=== PATIENT | female | born 1990 | race African-American/Black ===

== ENCOUNTER 2019-05-11 05:26 | Inpatient (IN) | payer MEDICAID ==
[2019-05-11] MEDS ORDERED: Oxytocin/0.9 % Sodium Chloride 30 UNIT/500 ML BAG IV SCH (05:30)
[2019-05-11] MEDS ORDERED: Sodium Chloride 0.9% 2.5 ML Syringe FLUSH PRN (05:30)
[2019-05-11] MEDS ORDERED: Citric Acid/Sodium Citrate Solution 30 ML Cup PO ONE (05:30)
[2019-05-11] MEDS ORDERED: Sodium Chloride 0.9% 10 ML Syringe FLUSH PRN (05:30)
[2019-05-11] MEDS ORDERED: ceFAZolin 2 GM in Premix Bag 1 BAG IV ONE (05:30)
[2019-05-11] MEDS ORDERED: Sodium Chloride 0.9% 10 ML SDV IV PRN (05:30)
[2019-05-11] MEDS: Lactated Ringers 1,000 ML IV SCH ×4 (05:54→23:52)
[2019-05-11] MEDS ORDERED: fentaNYL 100 MCG/2 ML SDV IVPUSH PRN (07:15)
[2019-05-11] MEDS ORDERED: Naloxone 0.4 MG/ML Syringe IVPUSH PRN (07:15)
[2019-05-11] MEDS ORDERED: Nalbuphine 10 MG/1 ML Vial IVPUSH PRN (07:15)
[2019-05-11] MEDS ORDERED: Ondansetron 4 MG/2 ML SDV IVPUSH PRN ×2 (07:15→09:23)
[2019-05-11] MEDS ORDERED: Acetaminophen/oxyCODONE 325-5 MG Tab PO PRN ×2 (07:15→09:23)
[2019-05-11] MEDS ORDERED: diphenhydrAMINE 50 MG/ML SDV IVPUSH PRN ×2 (07:15→09:23)
--- NOTE | 2019-05-11 07:15 | PCM.PREANE ---
Preanesthetic Assessment - Anesthesia/Transfusion/Family Hx Anesthesia History: Prior Anesthesia Without Reaction Family History of Anesthesia Reaction: No Transfusion History: Prior Transfusion Without Reaction Intubation History: Unknown - Review of Systems General: No Symptoms Pulmonary: No Symptoms Cardiovascular: No Symptoms Gastrointestinal: No Symptoms Neurological: No Symptoms Other: Reports: None - Physical Assessment Height: 5 ft 7 in Weight: 140.614 kg ASA Class: 2 Mental Status: Alert & Oriented x3 Airway Class: Mallampati = 2 Dentition: Reports: Normal Dentition Thyro-Mental Finger Breadths: 3 Mouth Opening Finger Breadths: 3 ROM/Head Extension: Full Lungs: Clear to Auscultation, Normal Respiratory Effort Cardiovascular: Regular Rate, Regular Rhythm - Lab Values: Laboratory Last Values WBC 8.28 K/uL (4.0-11.0) 05/11/19 05:53 RBC 4.02 M/uL (4.30-5.90) L 05/11/19 05:53 Hgb 11.0 g/dL (12.0-16.0) L 05/11/19 05:53 Hct 33.7 % (36.0-46.0) L 05/11/19 05:53 MCV 83.8 fL (80.0-98.0) 05/11/19 05:53 MCH 27.4 pg (27.0-32.0) 05/11/19 05:53 MCHC 32.6 g/dL (31.0-37.0) 05/11/19 05:53 RDW Std Deviation 40.5 fl (28.0-62.0) 05/11/19 05:53 RDW Coeff of Nayeli 14 % (11.0-15.0) 05/11/19 05:53 Plt Count 185 K/uL (150-400) 05/11/19 05:53 MPV 11.50 fL (7.40-12.00) 05/11/19 05:53 Nucleated RBC % 0.0 /100WBC 05/11/19 05:53 Nucleated RBCs # 0 K/uL 05/11/19 05:53 - Allergies Allergies/Adverse Reactions: Allergies Allergy/AdvReac Type Severity Reaction Status Date / Time No Known Allergies Allergy Verified 05/05/19 07:16 - Blood Blood Available: No - Anesthesia Plan Pre-Op Medication Ordered: None - Acknowledgements Anesthesia Type Planned: Spinal (general anesthesia back-up plan) Pt an Appropriate Candidate for the Planned Anesthesia: Yes Alternatives and Risks of Anesthesia Discussed w Pt/Guardian: Yes Pt/Guardian Understands and Agrees with Anesthesia Plan: Yes PreAnesthesia Questionnaire HEENT History: Reports: None Cardiovascular History: Reports: None Respiratory History: Reports: None Gastrointestinal History: Reports: Cholelithiasis Genitourinary History: Reports: None [employer] History: Reports: Musculoskeletal History: Reports: Fracture Other Musculoskeletal History: hx fx wrist Neurological History: Reports: None Psychiatric History: Reports: None Endocrine/Metabolic History: Reports: Obesity/BMI 30+ Hematologic History: Reports: None Immunologic History: Reports: None Oncologic (Cancer) History: Reports: None Dermatologic History: Reports: None - Infectious Disease History Infectious Disease History: Reports: None - Past Surgical History Head Surgeries/Procedures: Reports: None HEENT Surgical History: Reports: None Cardiovascular Surgical History: Reports: None Respiratory Surgical History: Reports: None GI Surgical History: Reports: Appendectomy Female Surgical History: Reports: Section (x2) Endocrine Surgical History: Reports: None Neurological Surgical History: Reports: None Musculoskeletal Surgical History: Reports: None Oncologic Surgical History: Reports: None Dermatological Surgical History: Reports: None - SUBSTANCE USE Smoking Status *Q: Current Every Day Smoker (1-2 cigaretes/day) Tobacco Use Within Last Twelve Months: Cigarettes Second Hand Smoke Exposure: No Recreational Drug Use History: No - HOME MEDS Home Medications: Home Meds . [No Known Home Meds] 03/14/19 [History] - CURRENT (IN HOUSE) MEDS Current Meds: Current Medications Lactated Ringer's (Ringers, Lactated) 1,000 mls @ 500 mls/hr IV BOLUS ОЛЬГА Last Admin: 05/11/19 06:52 Dose: 999 mls/hr Oxytocin/Sodium Chloride (Oxytocin 30 Unit/500 Ml-Ns) 30 unit in 500 mls @ 250 mls/hr IV TITRATE ОЛЬГА Sodium Chloride (Saline Flush) 10 ml FLUSH ASDIRECTED PRN PRN Reason: Keep Vein Open Sodium Chloride (Saline Flush) 2.5 ml FLUSH ASDIRECTED PRN PRN Reason: Keep Vein Open Sodium Chloride (Normal Saline) 10 ml IV ASDIRECTED PRN PRN Reason: IV Use Discontinued Medications Citric Acid/Sodium Citrate (Bicitra Solution) 30 ml PO ONETIME ONE Stop: 05/11/19 05:31 Cefazolin Sodium/Dextrose 2 gm (/ Premix) 50 mls @ 100 mls/hr IV ONETIME ONE Stop: 05/11/19 05:59
[2019-05-11] MEDS ORDERED: ceFAZolin 1 GM Vial ONE (07:23)
[2019-05-11] MEDS ORDERED: ePHEDrine 50 MG/ML SDV ONE (07:25)
[2019-05-11] MEDS ORDERED: Morphine PF 10 MG/10 ML SDV ONE (07:30)
[2019-05-11] MEDS ORDERED: Propofol 200 MG/20 ML SDV ONE (07:41)
[2019-05-11] MEDS ORDERED: Oxytocin 10 Units/1 ML SDV IM PRN (09:23)
[2019-05-11] MEDS ORDERED: Tranexamic Acid 1,000 MG in Sodium Chloride 0.9% 100 ML IV PRN (09:23)
[2019-05-11] MEDS ORDERED: Methylergonovine 0.2 MG/1 ML Amp IM PRN (09:23)
[2019-05-11] MEDS ORDERED: Bisacodyl 10 MG Supp RECTAL PRN (09:23)
[2019-05-11] MEDS ORDERED: Lanolin 100% Cream 7 GM Tube TOP PRN (09:23)
[2019-05-11] MEDS ORDERED: Misoprostol 200 MCG Tab RECTAL PRN (09:23)
--- NOTE | 2019-05-11 09:27 | PCM.LDHP ---
L&D History of Present Illness - General Date of Service: 05/11/19 Admit Problem/Dx: Patient Status Order with Admit Dx/Problem 05/11/19 05:30 Patient Status [ADT] Routine 05/11/19 09:23 Patient Status [ADT] Routine Admission Diagnosis/Problem Admission Diagnosis/Problem - planned Source of Information: Patient History Limitations: Reports: No Limitations - History of Present Illness Improves with: Reports: None Worsens with: Reports: None Associated Symptoms: Reports: N - Related Data Allergies/Adverse Reactions: Allergies Allergy/AdvReac Type Severity Reaction Status Date / Time No Known Allergies Allergy Verified 05/05/19 07:16 Home Medications: Home Meds . 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: Musculoskeletal History: Reports: Fracture Other Musculoskeletal History: hx fx wrist Neurological History: Reports: None Psychiatric History: Reports: None Endocrine/Metabolic History: Reports: Obesity/BMI 30+ Hematologic History: Reports: None Immunologic History: Reports: None Oncologic (Cancer) History: Reports: None Dermatologic History: Reports: None - Infectious Disease History Infectious Disease History: Reports: None - Past Surgical History Head Surgeries/Procedures: Reports: None HEENT Surgical History: Reports: None Cardiovascular Surgical History: Reports: None Respiratory Surgical History: Reports: None GI Surgical History: Reports: Appendectomy Female Surgical History: Reports: Section (x2) Endocrine Surgical History: Reports: None Neurological Surgical History: Reports: None Musculoskeletal Surgical History: Reports: None Oncologic Surgical History: Reports: None Dermatological Surgical History: Reports: None Social & Family History - Family History Family Medical History: Noncontributory - Tobacco Use Smoking Status *Q: Current Every Day Smoker (1-2 cigaretes/day) Years of Tobacco use: 7 Packs/Tins Daily: 0.7 Used Tobacco, but Quit: Yes Month/Year Tobacco Last Used: quit smoking approx 2 months ago Second Hand Smoke Exposure: No - Caffeine Use Caffeine Use: Reports: None - Recreational Drug Use Recreational Drug Use: No Drug Use in Last 12 Months: No H&P Review of Systems - Review of Systems: Review Of Systems: See Below General: Reports: No Symptoms HEENT: Reports: No Symptoms Pulmonary: Reports: No Symptoms Cardiovascular: Reports: No Symptoms Gastrointestinal: Reports: No Symptoms Genitourinary: Reports: No Symptoms Musculoskeletal: Reports: No Symptoms Skin: Reports: No Symptoms Psychiatric: Reports: No Symptoms Neurological: Reports: No Symptoms Hematologic/Lymphatic: Reports: No Symptoms Immunologic: Reports: No Symptoms L&D Exam - Exam Exam: See Below - Vital Signs Weight: 140.614 kg - OB Specific Fundal Height In cm: 40 Movement: Active Heart Tones: Present Presentation: Vertex - Exam General: Alert, Oriented HEENT: PERRLA, Conjunctiva Clear, EACs Clear, EOMI, Hearing Intact, Mucosa Moist & [place], Nares Patent, Normal Nasal Septum, Posterior Pharynx Clear, TMs Clear Neck: Supple, Trachea Midline Lungs: Clear to Auscultation, Normal Respiratory Effort Cardiovascular: Regular Rate, Regular Rhythm GI/Abdominal Exam: Normal Bowel Sounds, Soft, Non-Tender, No Organomegaly, No Distention, No Abnormal Bruit, No Mass, Pelvis Stable Rectal Exam: Normal Exam, Normal Rectal Tone Genitourinary: Normal external exam, Normal bimanual exam, Normal speculum exam Back Exam: Normal Inspection, Full Range of Motion Extremities: Normal Inspection, Normal Range of Motion, Non-Tender, No Pedal Edema, Normal Capillary Refill Skin: Warm, Dry, Intact Neurological: Cranial Nerves Intact, Reflexes Equal Bilateral Psychiatric: Alert, Normal Affect, Normal Mood - Patient Data Lab Results Last 24 hrs: Laboratory Results - last 24 hr 05/11/19 05/11/19 Range/Units 05:53 05:53 WBC 8.28 (4.0-11.0) K/uL RBC 4.02 L (4.30-5.90) M/uL Hgb 11.0 L (12.0-16.0) g/dL Hct 33.7 L (36.0-46.0) % MCV 83.8 (80.0-98.0) fL MCH 27.4 (27.0-32.0) pg MCHC 32.6 (31.0-37.0) g/dL RDW Std Deviation 40.5 (28.0-62.0) fl RDW Coeff of Nayeli 14 (11.0-15.0) % Plt Count 185 (150-400) K/uL MPV 11.50 (7.40-12.00) fL Nucleated RBC % 0.0 /100WBC Nucleated RBCs # 0 K/uL Blood Type B POSITIVE Antibody Screen NEGATIVE Result Diagrams: 05/11/19 05:53 Problem List Initiated/Reviewed/Updated: Yes Orders Last 24hrs: Active Orders 24 hr Category Date Time Status Patient Status [ADT] Routine ADT 05/11/19 09:23 Ordered Ambulate [RC] PER UNIT ROUTINE Care 05/11/19 09:23 Ordered Antiembolic Devices [RC] PER UNIT ROUTINE Care 05/11/19 09:24 Ordered Bradycardia-Neuroaxis [employer] [RC] ROUTINE Care 05/11/19 07:15 Active Communication Order [RC] PER UNIT ROUTINE Care 05/11/19 09:23 Ordered Communication Order [RC] PER UNIT ROUTINE Care 05/11/19 09:23 Ordered Communication Order [RC] Per Unit Routine Care 05/11/19 09:23 Ordered Non Stress Test [RC] PER UNIT ROUTINE Care 05/11/19 05:30 Active Hypertension-Neuroaxis [employer] [RC] ROUTINE Care 05/11/19 07:15 Active Hypotension-Neuroaxis [employer] [RC] ROUTINE Care 05/11/19 07:15 Active May Shower [RC] ASDIRECTED Care 05/11/19 09:23 Ordered Notify Provider Vital Signs [RC] PRN Care 05/11/19 05:30 Active Oxygen Therapy [RC] PER UNIT ROUTINE Care 05/11/19 07:15 Active Procedure Site Prep Instruct [RC] ASDIRECTED Care 05/11/19 05:30 Active RT Incentive Spirometry [RC] Q2HWA Care 05/11/19 09:23 Ordered Up ad Mira [RC] ASDIRECTED Care 05/11/19 05:30 Active Verify Patient Consent Obtain [RC] ASDIRECTED Care 05/11/19 05:30 Active Vital Signs [RC] PER UNIT ROUTINE Care 05/11/19 05:30 Active Vital Signs [RC] PER UNIT ROUTINE Care 05/11/19 09:23 Ordered Vital Signs [RC] Q1H Care 05/11/19 07:15 Active Regular Diet [DIET] Diet 05/11/19 Lunch Ordered HEMOGLOBIN/HEMATOCRIT,HH [HEME] Timed Lab 05/12/19 05:11 Ordered RPR (SYPHILIS SERO) W/ RFLX [REF] Routine Lab 05/11/19 05:53 Received Acetaminophen/oxyCODONE [Percocet 325-5 MG] Med 05/11/19 09:23 Ordered 1 tab PO Q4H PRN Acetaminophen/oxyCODONE [Percocet 325-5 MG] Med 05/11/19 09:23 Ordered 2 tab PO Q4H PRN Acetaminophen/oxyCODONE [Percocet 325-5 MG] Med 05/11/19 07:15 Active 2 tab PO Q6H PRN Docusate Sodium [Colace] Med 05/11/19 21:00 Ordered 100 mg PO BID Ibuprofen [Motrin] Med 05/11/19 09:23 Ordered 800 mg PO Q8H PRN Ketorolac [Toradol] Med 05/11/19 09:30 Ordered 30 mg IVPUSH Q6H Lactated Ringers @ 125 MLS/HR(1000ml) Med 05/11/19 09:30 Ordered Lactated Ringers [Ringers, Lactated] 1,000 ml IV ASDIRECTED Lactated Ringers [Ringers, Lactated] 1,000 ml Med 05/11/19 05:30 Active IV BOLUS Lanolin [Lansinoh HPA] Med 05/11/19 09:23 Ordered See Dose Instructions TOP ASDIRECTED PRN Methylergonovine [Methergine] Med 05/11/19 09:23 Ordered 0.2 mg IM ONETIME PRN Nalbuphine [Nubain] Med 05/11/19 07:15 Active 5 mg IVPUSH ASDIRECTED PRN Naloxone [Narcan] Med 05/11/19 07:15 Active 0.1 mg IVPUSH ONETIME PRN Ondansetron [Zofran] Med 05/11/19 09:23 Ordered 4 mg IVPUSH Q4H PRN Ondansetron [Zofran] Med 05/11/19 07:15 Active 4 mg IVPUSH Q6H PRN Oxytocin [Pitocin] Med 05/11/19 09:23 Ordered 10 unit IM ASDIRECTED PRN Oxytocin/0.9 % Sodium Chloride [Oxytocin 30 Unit/500 ML Med 05/11/19 05:30 Active -NS] 30 unit in 500 ml IV TITRATE Sodium Chloride 0.9% [Normal Saline] Med 05/11/19 05:30 Active 10 ml IV ASDIRECTED PRN Sodium Chloride 0.9% [Saline Flush] Med 05/11/19 05:30 Active 10 ml FLUSH ASDIRECTED PRN Sodium Chloride 0.9% [Saline Flush] Med 05/11/19 05:30 Active 2.5 ml FLUSH ASDIRECTED PRN Tranexamic Acid [Cyklokapron] 1,000 mg Med 05/11/19 09:23 Ordered Sodium Chloride 0.9% [Normal Saline] 100 ml IV ONETIME bisacodyL [Dulcolax] Med 05/11/19 09:23 Ordered 10 mg RECTAL ONETIME PRN diphenhydrAMINE [Benadryl] Med 05/11/19 07:15 Active 25 mg IVPUSH Q4H PRN diphenhydrAMINE [Benadryl] Med 05/11/19 09:23 Ordered 25 mg IVPUSH Q6H PRN fentaNYL [Sublimaze] Med 05/11/19 07:15 Active 50 mcg IVPUSH Q1H PRN miSOPROStoL [Cytotec] Med 05/11/19 09:23 Ordered 1,000 mcg RECTAL ONETIME PRN Assess Lochia [WOMSER] Per Unit Routine Oth 05/11/19 09:23 Ordered Assess Uterine Involution [WOMSER] Per Unit Routine Oth 05/11/19 09:23 Ordered Breast Pump [WOMSER] Per Unit Routine Oth 05/11/19 09:23 Ordered Peripheral IV Discontinue [OM.PC] Routine Oth 05/11/19 09:23 Ordered Peripheral IV Insertion Adult [OM.PC] Routine Oth 05/11/19 05:30 Ordered Schedule Procedure [COMM] Per Unit Routine Oth 05/11/19 05:30 Ordered Sequential Compression Device [OM.PC] Per Unit Routine Oth 05/11/19 09:23 Ordered Resuscitation Status Routine Resus Stat 05/11/19 05:30 Ordered Medication Orders Bisacodyl (Dulcolax) 10 mg RECTAL ONETIME PRN PRN Reason: Constipation Diphenhydramine HCl (Benadryl) 25 mg IVPUSH Q4H PRN PRN Reason: Itching Stop: 05/12/19 07:15 Diphenhydramine HCl (Benadryl) 25 mg IVPUSH Q6H PRN PRN Reason: Itching or Nausea Docusate Sodium (Colace) 100 mg PO BID [facility] Emollient Ointment (Lansinoh Hpa) 0 gm TOP ASDIRECTED PRN PRN Reason: Sore Nipples Fentanyl (Sublimaze) 50 mcg IVPUSH Q1H PRN PRN Reason: Pain (severe 7-10) Lactated Ringer's (Ringers, Lactated) 1,000 mls @ 500 mls/hr IV BOLUS [facility] Last Admin: 05/11/19 06:52 Dose: 999 mls/hr Infusion: 05/11/19 06:52 Dose: 999 mls/hr Admin: 05/11/19 05:54 Dose: 999 mls/hr Oxytocin/Sodium Chloride (Oxytocin 30 Unit/500 Ml-Ns) 30 unit in 500 mls @ 250 mls/hr IV TITRATE [facility] Tranexamic Acid 1,000 mg/ (Sodium Chloride) 110 mls @ 660 mls/hr IV ONETIME PRN PRN Reason: Bleeding Lactated Ringer's (Ringers, Lactated) 1,000 mls @ 125 mls/hr IV ASDIRECTED [facility] Ibuprofen (Motrin) 800 mg PO Q8H PRN PRN Reason: mild pain or fever Ketorolac Tromethamine (Toradol) 30 mg IVPUSH Q6H [facility] Stop: 05/12/19 09:31 Methylergonovine Maleate (Methergine) 0.2 mg IM ONETIME PRN PRN Reason: Excessive Vaginal Bleeding Misoprostol (Cytotec) 1,000 mcg RECTAL ONETIME PRN PRN Reason: excessive bleeding Nalbuphine HCl (Nubain) 5 mg IVPUSH ASDIRECTED PRN PRN Reason: Itching Naloxone HCl (Narcan) 0.1 mg IVPUSH ONETIME PRN PRN Reason: Respiratory Depression Stop: 05/12/19 07:15 Ondansetron HCl (Zofran) 4 mg IVPUSH Q6H PRN PRN Reason: Nausea Ondansetron HCl (Zofran) 4 mg IVPUSH Q4H PRN PRN Reason: Nausea/Vomiting Oxycodone/Acetaminophen (Percocet 325-5 Mg) 2 tab PO Q6H PRN PRN Reason: Pain (moderate 4-6) Oxycodone/Acetaminophen (Percocet 325-5 Mg) 1 tab PO Q4H PRN PRN Reason: Pain (moderate 4-6) Oxycodone/Acetaminophen (Percocet 325-5 Mg) 2 tab PO Q4H PRN PRN Reason: Pain (moderate 4-6) Oxytocin (Pitocin) 10 unit IM ASDIRECTED PRN PRN Reason: Excessive Vaginal Bleeding Sodium Chloride (Saline Flush) 10 ml FLUSH ASDIRECTED PRN PRN Reason: Keep Vein Open Sodium Chloride (Saline Flush) 2.5 ml FLUSH ASDIRECTED PRN PRN Reason: Keep Vein Open Sodium Chloride (Normal Saline) 10 ml IV ASDIRECTED PRN PRN Reason: IV Use Assessment/Plan Comment:: Term pregnancu admitted for elective repeat c/Section.
--- NOTE | 2019-05-11 09:29 | PCM.OPNOTE ---
- General Post-Op/Procedure Note Date of Surgery/Procedure: 05/11/19 Operative Procedure(s): REpeat C/section. Pre Op Diagnosis: IUP 39wks previous C/section. Post-Op Diagnosis: Same Anesthesia Technique: Spinal Primary Surgeon: Oswald Morel [employer]: Shaila Quinones EBL in mLs: 700 Complications: None Condition: Good Free Text/Narrative:: Intake & Output 05/10/19 05/11/19 05/11/19 22:59 06:59 14:59 Output Total 100 Balance -100
[2019-05-11] MEDS: Ketorolac 30 MG/ML SDV IVPUSH SCH ×3 (10:05→22:19)
--- NOTE | 2019-05-11 12:28 | PCM.POSTAN ---
POST ANESTHESIA ASSESSMENT - MENTAL STATUS Mental Status: Alert, Oriented - VITAL SIGNS Vital Signs: Last Vital Signs Temp 35.7 C L 05/11/19 12:17 Pulse 59 L 05/11/19 12:17 Resp 18 05/11/19 12:17 BP 126/60 05/11/19 12:17 Pulse Ox 97 05/11/19 12:17 - RESPIRATORY Respiratory Status: Respiratory Rate WNL, Airway Patent, O2 Saturation Stable - CARDIOVASCULAR CV Status: Pulse Rate WNL, Blood Pressure Stable - GASTROINTESTINAL GI Status: No Symptoms - PAIN Pain Score: 0 - POST OP HYDRATION Hydration Status: Adequate & Stable - OBSERVATIONS Free Text/Narrative:: No anesthesia problems
--- NOTE | 2019-05-11 14:57 | OR ---
SURGEON: Oswald Morel MD DATE OF PROCEDURE: PREOPERATIVE DIAGNOSES: Intrauterine at 39 weeks, previous section, admitted for elective repeat section. POSTOPERATIVE DIAGNOSES: Intrauterine at 39 weeks, previous section, admitted for elective repeat section. OPERATION PERFORMED: Repeat low transverse section with low transverse Pfannenstiel skin incision. PRIMARY SURGEON: Oswald Morel MD HANDLE ASSEMBLER: Shaila Quinones CNM ANESTHESIA: Spinal. ESTIMATED BLOOD LOSS: 700 mL. COMPLICATIONS: None. FINDINGS: Male fetus. score reported to be 9 and 9. One nuchal cord. Normal uterus, tubes, and ovaries. INDICATIONS FOR SURGERY: This patient is 28. She had two previous sections. She is 39 weeks. She is admitted for elective repeat section. PROCEDURE IN DETAIL: The patient was brought to the OR, properly identified, and after adequate level of anesthesia, spinal, with a Cordova catheter in the bladder, the patient was prepped and draped in sterile fashion as usual. Low transverse Pfannenstiel skin incision done. Victor Hugo fascia and rectus fascia were opened in direction of the incision. The two recti muscles were and peritoneal cavity was entered. Bladder flap was raised in the usual manner and then low transverse uterine incision was done and extended manually with the hand. The fetus was in a vertex position, delivered without any problem. One nuchal cord was noted and later on the score reported to be 9 and 9. The placenta delivered spontaneous, complete, and intact. Repair of the lower uterine segment was done with 2-0 Vicryl continuous interlocking in two layers. Inspection of the operative field shows no oozing, no bleeding. Then the peritoneal cavity evacuated completely from all blood and blood clot and closed with 3-0 Vicryl continuous. The rectus fascia was closed with #1 PDS double-strand continuous, Victor Hugo fascia with 3-0 Vicryl continuous, and skin closed in a subcuticular fashion with Stratafix suture. Instrument and sponge count was correct. The patient tolerated the procedure well, went to recovery room in stable general condition. JUANY / MARLENI /[id number]
[2019-05-11] MEDS: Docusate Sodium 100 MG Cap PO SCH (22:19)
[2019-05-12] MEDS: Ketorolac 30 MG/ML SDV IVPUSH SCH ×2 (03:44→09:51)
--- NOTE | 2019-05-12 08:48 | PCM.PNPP ---
- General Info Date of Service: 05/12/19 Functional Status: Reports: Pain Controlled - Review of Systems General: Reports: No Symptoms HEENT: Reports: No Symptoms Pulmonary: Reports: No Symptoms Cardiovascular: Reports: No Symptoms Gastrointestinal: Reports: No Symptoms Genitourinary: Reports: No Symptoms Musculoskeletal: Reports: No Symptoms Skin: Reports: No Symptoms Neurological: Reports: No Symptoms Psychiatric: Reports: No Symptoms - General Info Date of Service: 05/12/19 - Patient Data Vital Signs - Most Recent: Last Vital Signs Temp 36.5 C 05/12/19 04:51 Pulse 82 05/12/19 07:00 Resp 16 05/12/19 07:00 BP 121/53 L 05/12/19 04:51 Pulse Ox 97 05/12/19 07:00 Weight - Most Recent: 140.614 kg I&O - Last 24 Hours: Intake & Output 05/11/19 05/12/19 05/12/19 22:59 06:59 14:59 Output Total 950 3000 Balance -950 -3000 Lab Results - Last 24 Hours: Laboratory Results - last 24 hr 05/12/19 Range/Units 05:33 Hgb 9.8 L (12.0-16.0) g/dL Hct 29.7 L (36.0-46.0) % Med Orders - Current: Current Medications Bisacodyl (Dulcolax) 10 mg RECTAL ONETIME PRN PRN Reason: Constipation Diphenhydramine HCl (Benadryl) 25 mg IVPUSH Q6H PRN PRN Reason: Itching or Nausea Docusate Sodium (Colace) 100 mg PO BID [facility] Last Admin: 05/11/19 22:19 Dose: 100 mg Emollient Ointment (Lansinoh Hpa) 0 gm TOP ASDIRECTED PRN PRN Reason: Sore Nipples Last Admin: 05/11/19 15:13 Dose: 1 tube Fentanyl (Sublimaze) 50 mcg IVPUSH Q1H PRN PRN Reason: Pain (severe 7-10) Lactated Ringer's (Ringers, Lactated) 1,000 mls @ 500 mls/hr IV BOLUS [facility] Last Admin: 05/11/19 06:52 Dose: 999 mls/hr Oxytocin/Sodium Chloride (Oxytocin 30 Unit/500 Ml-Ns) 30 unit in 500 mls @ 250 mls/hr IV TITRATE [facility] Tranexamic Acid 1,000 mg/ (Sodium Chloride) 110 mls @ 660 mls/hr IV ONETIME PRN PRN Reason: Bleeding Lactated Ringer's (Ringers, Lactated) 1,000 mls @ 125 mls/hr IV ASDIRECTED [facility] Last Admin: 05/11/19 23:52 Dose: 125 mls/hr Ibuprofen (Motrin) 800 mg PO Q8H PRN PRN Reason: mild pain or fever Ketorolac Tromethamine (Toradol) 30 mg IVPUSH Q6H [facility] Stop: 05/12/19 09:31 Last Admin: 05/12/19 03:44 Dose: 30 mg Methylergonovine Maleate (Methergine) 0.2 mg IM ONETIME PRN PRN Reason: Excessive Vaginal Bleeding Misoprostol (Cytotec) 1,000 mcg RECTAL ONETIME PRN PRN Reason: excessive bleeding Nalbuphine HCl (Nubain) 5 mg IVPUSH ASDIRECTED PRN PRN Reason: Itching Last Admin: 05/11/19 10:25 Dose: 5 mg Ondansetron HCl (Zofran) 4 mg IVPUSH Q6H PRN PRN Reason: Nausea Ondansetron HCl (Zofran) 4 mg IVPUSH Q4H PRN PRN Reason: Nausea/Vomiting Last Admin: 05/11/19 15:13 Dose: 4 mg Oxycodone/Acetaminophen (Percocet 325-5 Mg) 2 tab PO Q6H PRN PRN Reason: Pain (moderate 4-6) Oxycodone/Acetaminophen (Percocet 325-5 Mg) 1 tab PO Q4H PRN PRN Reason: Pain (moderate 4-6) Oxycodone/Acetaminophen (Percocet 325-5 Mg) 2 tab PO Q4H PRN PRN Reason: Pain (moderate 4-6) Oxytocin (Pitocin) 10 unit IM ASDIRECTED PRN PRN Reason: Excessive Vaginal Bleeding Sodium Chloride (Saline Flush) 10 ml FLUSH ASDIRECTED PRN PRN Reason: Keep Vein Open Sodium Chloride (Saline Flush) 2.5 ml FLUSH ASDIRECTED PRN PRN Reason: Keep Vein Open Sodium Chloride (Normal Saline) 10 ml IV ASDIRECTED PRN PRN Reason: IV Use Discontinued Medications Cefazolin Sodium (Ancef) Confirm Administered Dose 2 gm .ROUTE .STK-MED ONE Stop: 05/11/19 07:24 Citric Acid/Sodium Citrate (Bicitra Solution) 30 ml PO ONETIME ONE Stop: 05/11/19 05:31 Last Admin: 05/11/19 12:13 Dose: Not Given Diphenhydramine HCl (Benadryl) 25 mg IVPUSH Q4H PRN PRN Reason: Itching Stop: 05/12/19 07:15 Ephedrine Sulfate (Ephedrine Sulfate) Confirm Administered Dose 50 mg .ROUTE .STK-MED ONE Stop: 05/11/19 07:26 Cefazolin Sodium/Dextrose 2 gm (/ Premix) 50 mls @ 100 mls/hr IV ONETIME ONE Stop: 05/11/19 05:59 Last Admin: 05/11/19 12:13 Dose: Not Given Morphine Sulfate (Duramorph Pf) Confirm Administered Dose 10 mg .ROUTE .STK-MED ONE Stop: 05/11/19 07:31 Naloxone HCl (Narcan) 0.1 mg IVPUSH ONETIME PRN PRN Reason: Respiratory Depression Stop: 05/12/19 07:15 Propofol (Diprivan 20 Ml) Confirm Administered Dose 200 mg .ROUTE .STK-MED ONE Stop: 05/11/19 07:42 - Interaction Infant Disposition, : in Room with Family Interaction: Holding Infant Infant Feeding: Attempted ; Nursed Fair/Poor Support Person: Other (see below) - Recovery Exam Fundal Tone: Firm Fundal Level: 2 Fingerbreadths Below Umbilicus Fundal Placement: Midline Lochia Amount: Scant Lochia Color: Rubra/Red Perineum Description: Intact, Minimal Bruising/Swelling Episiotomy/Laceration: None Urinary Elimination: Indwelling Catheter - Exam General: Alert, Oriented HEENT: Pupils Equal Neck: Supple Lungs: Clear to Auscultation, Normal Respiratory Effort Cardiovascular: Regular Rate, Regular Rhythm GI/Abdominal Exam: Normal Bowel Sounds, Soft, Non-Tender, No Organomegaly, No Distention, No Abnormal Bruit, No Mass, Pelvis Stable Extremities: Normal Inspection, Normal Range of Motion, Non-Tender, No Pedal Edema, Normal Capillary Refill Skin: Warm, Dry, Intact Wound/Incisions: Healing Well Neurological: No New Focal Deficit Psy/Mental Status: Alert, Normal Affect, Normal Mood - Problem List Review Problem List Initiated/Reviewed/Updated: Yes - My Orders Last 24 Hours: My Active Orders 05/11/19 09:23 Patient Status [ADT] Routine Ambulate [RC] PER UNIT ROUTINE Communication Order [RC] PER UNIT ROUTINE Communication Order [RC] Per Unit Routine May Shower [RC] ASDIRECTED RT Incentive Spirometry [RC] Q2HWA Vital Signs [RC] PER UNIT ROUTINE Acetaminophen/oxyCODONE [Percocet 325-5 MG] 1 tab PO Q4H PRN Acetaminophen/oxyCODONE [Percocet 325-5 MG] 2 tab PO Q4H PRN Ibuprofen [Motrin] 800 mg PO Q8H PRN Lanolin [Lansinoh HPA] See Dose Instructions TOP ASDIRECTED PRN Methylergonovine [Methergine] 0.2 mg IM ONETIME PRN Ondansetron [Zofran] 4 mg IVPUSH Q4H PRN Oxytocin [Pitocin] 10 unit IM ASDIRECTED PRN Tranexamic Acid [Cyklokapron] 1,000 mg Sodium Chloride 0.9% [Normal Saline] 100 ml IV ONETIME bisacodyL [Dulcolax] 10 mg RECTAL ONETIME PRN diphenhydrAMINE [Benadryl] 25 mg IVPUSH Q6H PRN miSOPROStoL [Cytotec] 1,000 mcg RECTAL ONETIME PRN Assess Lochia [WOMSER] Per Unit Routine Assess Uterine Involution [WOMSER] Per Unit Routine Breast Pump [WOMSER] Per Unit Routine Peripheral IV Discontinue [OM.PC] Routine Sequential Compression Device [OM.PC] Per Unit Routine 05/11/19 09:24 Antiembolic Devices [RC] PER UNIT ROUTINE 05/11/19 09:30 Ketorolac [Toradol] 30 mg IVPUSH Q6H Lactated Ringers [Ringers, Lactated] 1,000 ml IV ASDIRECTED 05/11/19 21:00 Docusate Sodium [Colace] 100 mg PO BID 05/11/19 Lunch Regular Diet [DIET] - Assessment Assessment:: S/P C/section doing well will be discharge in am. - Plan Plan:: Term pregnancu admitted for elective repeat c/Section.
[2019-05-12] MEDS: Docusate Sodium 100 MG Cap PO SCH ×2 (09:51→20:40)
[2019-05-12] MEDS: Acetaminophen/oxyCODONE 325-5 MG Tab PO PRN ×2 (16:28→23:59)
[2019-05-12] MEDS: Ibuprofen 800 MG Tab PO PRN (20:39)
[2019-05-13] MEDS: Acetaminophen/oxyCODONE 325-5 MG Tab PO PRN ×2 (04:15→11:42)
--- NOTE | 2019-05-13 09:00 | PCM.DCSUM1 ---
Discharge Summary - Hospital Course Free Text/Narrative:: Discharge home with baby. Follow up in [address] Morel for incision check. Follow up in 6 weeks for routine exam. Diagnosis: Stroke: No Modified [place] Scale: No Symptoms at All Modified [place] Scale Score: 0 - Discharge Data Discharge Date: 05/13/19 Discharge Disposition: Home, Self-Care 01 Condition: Good - Referral to Home Health Primary Care Physician: PCP None - Patient Summary/Data Operative Procedure(s) Performed: REpeat C/section. - Patient Instructions Diet: Regular Diet as Tolerated, Drink 8-10+ Glasses/Day Activity: As Tolerated, No Strenuous Activities, Rest and Relax Today Driving: Do Not Drive Showering/Bathing: May Shower Wound/Incision Care: Keep Operative Site/Wound Site Clean and Dry Notify Provider of: Fever, Increased Pain, Swelling and Redness, Drainage, Nausea and/or Vomiting - Discharge Plan *PRESCRIPTION DRUG MONITORING PROGRAM REVIEWED*: Not Applicable *COPY OF PRESCRIPTION DRUG MONITORING REPORT IN PATIENT [place]: Not Applicable Prescriptions/Med Rec: Acetaminophen/oxyCODONE [Percocet 325-5 MG] 1 tab PO Q6H PRN #24 tablet PRN Reason: Pain (Moderate 4-6) Ibuprofen [Motrin] 800 mg PO Q8H PRN #90 tablet PRN Reason: mild pain or fever Home Medications: Home Meds Acetaminophen/oxyCODONE [Percocet 325-5 MG] 1 tab PO Q6H PRN #24 tablet [Rx] Ibuprofen [Motrin] 800 mg PO Q8H PRN #90 tablet 05/13/19 [Rx] Oxygen Therapy Mode: Room Air Referrals: [facility] [Outside] Oswald Morel MD [Physician] - (1 week- May 16@3:00pm w/ Dr. Morel week- June 20@1:30pm w/ Dr. Morel ) - Discharge Summary/Plan Comment DC Time >30 min.: Yes Discharge Summary/Plan Comment: Discharge home with baby. Follow up in [address] Morel for incision check. Follow up in 6 weeks for routine exam - Patient Data Vitals - Most Recent: Last Vital Signs Temp 96.8 F L 05/13/19 07:23 Pulse 72 05/13/19 07:23 Resp 20 05/13/19 07:23 BP 130/65 05/13/19 07:23 Pulse Ox 97 05/13/19 07:23 Weight - Most Recent: 310 lb Lab Results - Last 24 hrs: Laboratory Results - last 24 hr 05/11/19 Range/Units 05:53 RPR Non-Reac (Non-Reac) Med Orders - Current: Current Medications Bisacodyl (Dulcolax) 10 mg RECTAL ONETIME PRN PRN Reason: Constipation Diphenhydramine HCl (Benadryl) 25 mg IVPUSH Q6H PRN PRN Reason: Itching or Nausea Docusate Sodium (Colace) 100 mg PO BID [facility] Last Admin: 05/12/19 20:40 Dose: 100 mg Emollient Ointment (Lansinoh Hpa) 0 gm TOP ASDIRECTED PRN PRN Reason: Sore Nipples Last Admin: 05/11/19 15:13 Dose: 1 tube Fentanyl (Sublimaze) 50 mcg IVPUSH Q1H PRN PRN Reason: Pain (severe 7-10) Lactated Ringer's (Ringers, Lactated) 1,000 mls @ 500 mls/hr IV BOLUS [facility] Last Admin: 05/11/19 06:52 Dose: 999 mls/hr Oxytocin/Sodium Chloride (Oxytocin 30 Unit/500 Ml-Ns) 30 unit in 500 mls @ 250 mls/hr IV TITRATE [facility] Tranexamic Acid 1,000 mg/ (Sodium Chloride) 110 mls @ 660 mls/hr IV ONETIME PRN PRN Reason: Bleeding Lactated Ringer's (Ringers, Lactated) 1,000 mls @ 125 mls/hr IV ASDIRECTED [facility] Last Admin: 05/11/19 23:52 Dose: 125 mls/hr Ibuprofen (Motrin) 800 mg PO Q8H PRN PRN Reason: mild pain or fever Last Admin: 05/12/19 20:39 Dose: 800 mg Methylergonovine Maleate (Methergine) 0.2 mg IM ONETIME PRN PRN Reason: Excessive Vaginal Bleeding Misoprostol (Cytotec) 1,000 mcg RECTAL ONETIME PRN PRN Reason: excessive bleeding Nalbuphine HCl (Nubain) 5 mg IVPUSH ASDIRECTED PRN PRN Reason: Itching Last Admin: 05/11/19 10:25 Dose: 5 mg Ondansetron HCl (Zofran) 4 mg IVPUSH Q6H PRN PRN Reason: Nausea Ondansetron HCl (Zofran) 4 mg IVPUSH Q4H PRN PRN Reason: Nausea/Vomiting Last Admin: 05/11/19 15:13 Dose: 4 mg Oxycodone/Acetaminophen (Percocet 325-5 Mg) 2 tab PO Q6H PRN PRN Reason: Pain (moderate 4-6) Oxycodone/Acetaminophen (Percocet 325-5 Mg) 1 tab PO Q4H PRN PRN Reason: Pain (moderate 4-6) Last Admin: 05/13/19 04:15 Dose: 1 tab Oxycodone/Acetaminophen (Percocet 325-5 Mg) 2 tab PO Q4H PRN PRN Reason: Pain (moderate 4-6) Oxytocin (Pitocin) 10 unit IM ASDIRECTED PRN PRN Reason: Excessive Vaginal Bleeding Sodium Chloride (Saline Flush) 10 ml FLUSH ASDIRECTED PRN PRN Reason: Keep Vein Open Sodium Chloride (Saline Flush) 2.5 ml FLUSH ASDIRECTED PRN PRN Reason: Keep Vein Open Sodium Chloride (Normal Saline) 10 ml IV ASDIRECTED PRN PRN Reason: IV Use Discontinued Medications Cefazolin Sodium (Ancef) Confirm Administered Dose 2 gm .ROUTE .STK-MED ONE Stop: 05/11/19 07:24 Citric Acid/Sodium Citrate (Bicitra Solution) 30 ml PO ONETIME ONE Stop: 05/11/19 05:31 Last Admin: 05/11/19 12:13 Dose: Not Given Diphenhydramine HCl (Benadryl) 25 mg IVPUSH Q4H PRN PRN Reason: Itching Stop: 05/12/19 07:15 Ephedrine Sulfate (Ephedrine Sulfate) Confirm Administered Dose 50 mg .ROUTE .STK-MED ONE Stop: 05/11/19 07:26 Cefazolin Sodium/Dextrose 2 gm (/ Premix) 50 mls @ 100 mls/hr IV ONETIME ONE Stop: 05/11/19 05:59 Last Admin: 05/11/19 12:13 Dose: Not Given Ketorolac Tromethamine (Toradol) 30 mg IVPUSH Q6H [facility] Stop: 05/12/19 09:31 Last Admin: 05/12/19 09:51 Dose: 30 mg Morphine Sulfate (Duramorph Pf) Confirm Administered Dose 10 mg .ROUTE .STK-MED ONE Stop: 05/11/19 07:31 Naloxone HCl (Narcan) 0.1 mg IVPUSH ONETIME PRN PRN Reason: Respiratory Depression Stop: 05/12/19 07:15 Propofol (Diprivan 20 Ml) Confirm Administered Dose 200 mg .ROUTE .STK-MED ONE Stop: 05/11/19 07:42
[2019-05-13] MEDS: Ibuprofen 800 MG Tab PO PRN (11:41)
[2019-05-13] MEDS: Docusate Sodium 100 MG Cap PO SCH (11:46)
== END 2019-05-13 13:10 | disposition home or self-care (01) | DRG 788 ==
LOC: MW.OB 05:26
PROVIDERS: ADMIT Obstetrics & Gynecology; ATTEND Obstetrics & Gynecology
PROC: 10D00Z1 Extraction of Products of Conception, Low, Open Approach (ICD-10-PCS; principal; 2019-05-11)
DX: O34.211 Maternal care for low transverse scar from previous cesarean delivery (principal); O99.334 Smoking (tobacco) complicating childbirth; F17.210 Nicotine dependence, cigarettes, uncomplicated; Z37.0 Single live birth; Z3A.39 39 weeks gestation of pregnancy
CPT/HCPCS: 36415; 59025; 85014; 85018; 85027; 86592; 86593; 86850; 86900; 86901; A9270-GY; J0690; J1885; J2270; J2300; J2405; J2704; J7120

== ENCOUNTER 2020-01-05 14:41 | Emergency (ER) | payer MEDICAID ==
[2020-01-05] MEDS ORDERED: Sodium Chloride 0.9% 2.5 ML Syringe FLUSH PRN (14:43)
[2020-01-05] MEDS ORDERED: Sodium Chloride 0.9% 10 ML Syringe FLUSH PRN (14:43)
[2020-01-05] MEDS ORDERED: Ondansetron 4 MG/2 ML SDV IVPUSH ONE (14:49)
[2020-01-05] MEDS ORDERED: Morphine 4 MG/ML Syringe IVPUSH ONE (14:49)
--- NOTE | 2020-01-05 14:56 | PCM.SN.2 ---
- Free Text/Narrative Note: 12-Lead ECG Interpretation Acquired: 2:42 PM Rhythm: Sinus arrhythmia Rate: 65 bpm [place]: Normal Intervals: Normal Ectopy: None RV Strain: No obvious RV strain pattern. ST Segments/T-Waves: No notable changes Acute Ischemic Changes: None apparent Interpretation: No STEMI
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
[2020-01-05 16:04] LABS: BLOOD UREA NITROGEN,BUN 14 mg/dL (7.0-18.0); CARBON DIOXIDE,CO2 26.4 mmol/L (21.0-32.0); CHLORIDE,CL 105 mmol/L (98-107); GLUCOSE RANDOM 83 mg/dL (74-106); LIPASE 193 U/L (73-393); POTASSIUM,K 3.9 mmol/L (3.5-5.1); SODIUM,NA 139 mmol/L (136-145)
--- NOTE | 2020-01-05 16:36 | CR ---
Indication: Pain and shortness of breath Comparison: None available. Technique: Single AP view chest Findings: There is mild hyperinflation. There is no focal consolidation, effusion, or pneumothorax. The cardiomediastinal silhouette is within normal limits. The bony thorax is grossly intact. Impression: Mild hyperinflation without evidence of dense consolidation. Dictated by Wang Owens MD @ Jan 05 2020 4:33PM Signed by Dr. Wang Owens @ Jan 05 2020 4:34PM
== END 2020-01-05 16:56 | disposition home or self-care (01) ==
LOC: MW.ED 14:41
DX: R07.9 Chest pain, unspecified (principal); E66.9 Obesity, unspecified; Z68.37 Body mass index [BMI] 37.0-37.9, adult
CPT/HCPCS: 71045; 80053; 81003; 81025; 83690; 85025; 85379; 93005; 96374; 96375; 99285; J2270; J2405; 93010; 99283

== ENCOUNTER 2020-01-15 17:00 | Emergency (ER) | payer MEDICAID ==
[2020-01-15] MEDS ORDERED: Ibuprofen 600 MG Tab PO ONE (17:49)
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
== END 2020-01-15 21:16 | disposition home or self-care (01) ==
LOC: MW.ED 17:00
DX: S40.021A Contusion of right upper arm, initial encounter (principal); M54.9 Dorsalgia, unspecified; E66.9 Obesity, unspecified; Z68.37 Body mass index [BMI] 37.0-37.9, adult; F17.210 Nicotine dependence, cigarettes, uncomplicated; Y04.0XXA Assault by unarmed brawl or fight, initial encounter
CPT/HCPCS: 72110; 72131; 73060; 81025; 99283; A9270; 99284

== ENCOUNTER 2020-02-26 16:52 | Emergency (ER) | payer MEDICAID ==
[2020-02-26] MEDS ORDERED: Ondansetron 4 MG/2 ML SDV IVPUSH ONE (17:00)
[2020-02-26] MEDS ORDERED: Sodium Chloride 0.9% 1,000 ML IV ONE (17:00)
[2020-02-26] MEDS ORDERED: Ketorolac 30 MG/ML SDV IVPUSH ONE (17:00)
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
--- NOTE | 2020-02-26 17:27 | CR ---
INDICATION: CHEST PAIN. 1 IMAGE SENT. PRIOR 05-JAN-2020 TECHNIQUE: Chest 1 view. COMPARISON: 01/05/20 FINDINGS: Cardiovascular and mediastinum: Heart size and vasculature are normal in caliber and appearance. Mediastinum is within normal limits. Lungs and pleural space: Lungs are clear. No sign of infiltrate or mass. No sign of pleural effusion. No pneumothorax. Bones and soft tissues: No significant findings. IMPRESSION: Unremarkable chest. Dictated by: Santiago Pedraza MD @ 02/26/2020 17:25:49 (Electronically Signed)
--- NOTE | 2020-02-26 17:32 | PCM.SN.2 ---
- Free Text/Narrative Note: EKG Time 455pm Rate 66 NSR no NICOLASA
[2020-02-26 17:44] LABS: BLOOD UREA NITROGEN,BUN 13 mg/dL (7.0-18.0); CARBON DIOXIDE,CO2 22.3 mmol/L (21.0-32.0); CHLORIDE,CL 102 mmol/L (98-107); GLUCOSE RANDOM 65 mg/dL (74-106); LIPASE 174 U/L (73-393); POTASSIUM,K 3.6 mmol/L (3.5-5.1); SODIUM,NA 137 mmol/L (136-145)
[2020-02-26] MEDS ORDERED: Iopamidol 755 MG/ML 500 ML Multipack Bottle IVPUSH STA (18:59)
--- NOTE | 2020-02-26 19:35 | CT ---
INDICATION: RUQ abdomen pain. CT ABDOMEN AND PELVIS WITH CONTRAST TECHNIQUE: Multidetector CT imaging was performed through the abdomen and pelvis following intravenous contrast administration using 100 mL Isovue 370. Coronal and sagittal reconstructions were generated. COMPARISON: None. FINDINGS: Lower chest: Lung bases are clear. Liver: No focal liver lesion identified. Gallbladder and bile ducts: Moderately distended gallbladder. Question of mild gallbladder wall thickening and/or trace pericholecystic fluid. Mild intrahepatic biliary dilation. Slight dilation of the extrahepatic bile duct measuring 7 millimeters in diameter. No definite calcified gallstones or intraductal stones identified. Pancreas: Unremarkable. Spleen: Normal. Adrenals: No nodules or masses. Kidneys, ureters, and urinary bladder: No renal masses or hydronephrosis. No bladder mass or definite wall thickening. Gastrointestinal tract: Normal caliber bowel without wall thickening or obstruction. Appendix not identified. Vascular structures: Normal for age. Peritoneum: Trace free fluid in the low pelvis, possibly physiologic. No free air identified in the abdomen or pelvis. Lymph nodes: No pathologically enlarged nodes identified. Reproductive organs: No pelvic masses. Bones: Normal for age. IMPRESSION: Distended gallbladder with question of mild wall thickening and/or pericholecystic fluid. Mild biliary dilation. Further evaluation with gallbladder ultrasound is recommended. JEMIMA PULIDO MD [facility] Dictated by Danny Puldio MD @ 02/26/2020 7:30:59 PM Dictated by: Danny Pulido MD @ 02/26/2020 19:33:26 (Electronically Signed)
[2020-02-26] MEDS ORDERED: Morphine 4 MG/ML Syringe IVPUSH ONE (19:48)
--- NOTE | 2020-02-26 22:03 | US ---
INDICATION: Epigastric pain. Abnormal gallbladder on CT TECHNIQUE: Ultrasound abdomen limited. Sonographic images of the right upper quadrant were obtained using yepez-scale and color Doppler images. COMPARISON: A CT scan from the same date. FINDINGS: Liver: Unremarkable echotexture. No masses. Mild central intrahepatic biliary dilatation. Gallbladder: Cholelithiasis with gallbladder distention. No significant gallbladder wall thickening demonstrated. A reported negative sonographic Hackett sign. Common bile duct: 3 mm. Pancreas: The distal pancreatic body and tail are obscured. No discrete abnormality seen in the visualized portions. Right kidney: 9.7 cm. Unremarkable echotexture and cortex. No masses, stones, or hydronephrosis. IMPRESSION: Cholelithiasis with gallbladder distention. No significant gallbladder wall thickening demonstrated. Given the appearance on the recent CT scan, correlation with a HIDA scan versus repeat ultrasound should be considered, as clinically indicated. Mild central intrahepatic biliary dilatation without significant extrahepatic dilatation. Dictated by Eron Johnson MD @ Feb 26 2020 9:52PM Signed by Dr. Eron Johnson @ Feb 26 2020 10:02PM
== END 2020-02-26 22:19 | disposition home or self-care (01) ==
LOC: MW.ED 16:52
DX: K80.20 Calculus of gallbladder without cholecystitis without obstruction (principal); E66.9 Obesity, unspecified; Z68.36 Body mass index [BMI] 36.0-36.9, adult
CPT/HCPCS: 36415; 71045; 74177; 76705; 80053; 81003; 81025; 82962; 83690; 84484; 85025; 93005; 96374; 96375; 99285; J1885; J2270; J2405; J7030; Q9967; 93010; 99284

== ENCOUNTER 2021-02-06 05:08 | Inpatient (IN) | payer MEDICAID ==
[2021-02-06] MEDS: Lactated Ringers 1,000 ML IV SCH ×5 (05:35→17:56)
[2021-02-06] MEDS ORDERED: Sodium Chloride 0.9% 2.5 ML Syringe FLUSH PRN (05:52)
[2021-02-06] MEDS ORDERED: Citric Acid/Sodium Citrate Solution 30 ML Cup PO ONE (05:52)
[2021-02-06] MEDS ORDERED: Ondansetron 4 MG/2 ML SDV IVPUSH PRN ×4 (05:52→08:18)
[2021-02-06] MEDS ORDERED: Sodium Chloride 0.9% 10 ML Syringe FLUSH PRN (05:52)
[2021-02-06] MEDS ORDERED: Sodium Chloride 0.9% 20 ML SDV IV PRN (05:52)
[2021-02-06] MEDS ORDERED: Oxytocin/0.9 % Sodium Chloride 30 UNIT/500 ML BAG IV SCH (06:00)
[2021-02-06] MEDS ORDERED: Ondansetron 4 MG/2 ML SDV ONE ×2 (07:06)
[2021-02-06] MEDS ORDERED: Oxytocin 10 Units/1 ML SDV ONE ×3 (07:06)
[2021-02-06] MEDS ORDERED: Morphine PF 10 MG/10 ML SDV ONE (07:06)
[2021-02-06] MEDS ORDERED: fentaNYL 100 MCG/2 ML SDV ONE (07:06)
[2021-02-06] MEDS ORDERED: Ropivacaine 0.5% 5 MG/ML 30 ML SDV ONE ×2 (07:08)
[2021-02-06] MEDS ORDERED: Acetaminophen/oxyCODONE 325-5 MG Tab PO PRN ×3 (07:09→08:18)
[2021-02-06] MEDS ORDERED: Albuterol 0.083% 2.5 MG/3 ML Neb Soln NEB PRN (07:09)
[2021-02-06] MEDS ORDERED: Morphine 2 MG/ML SYRINGE IVPUSH PRN (07:09)
[2021-02-06] MEDS ORDERED: Nalbuphine 10 MG/1 ML Vial IVPUSH PRN (07:09)
[2021-02-06] MEDS ORDERED: diphenhydrAMINE 50 MG/ML SDV IVPUSH PRN ×2 (07:09→08:18)
[2021-02-06] MEDS ORDERED: Naloxone 0.4 MG/ML SDV IVPUSH PRN (07:09)
[2021-02-06] MEDS ORDERED: HYDROmorphone 1 MG/ML Syringe IVPUSH PRN (07:09)
[2021-02-06] MEDS ORDERED: Metoclopramide 10 MG/2 ML SDV IVPUSH PRN (07:09)
[2021-02-06] MEDS ORDERED: fentaNYL 100 MCG/2 ML SDV IVPUSH PRN ×2 (07:09)
[2021-02-06] MEDS ORDERED: ceFAZolin 1 GM Vial ONE ×2 (07:11)
--- NOTE | 2021-02-06 07:11 | PCM.PREANE ---
Preanesthetic Assessment - Anesthesia/Transfusion/Family Hx Anesthesia History: Prior Anesthesia Without Reaction Transfusion History: Prior Transfusion Without Reaction Intubation History: Unknown - Review of Systems General: No Symptoms Pulmonary: No Symptoms Cardiovascular: No Symptoms Gastrointestinal: No Symptoms Neurological: No Symptoms Other: Reports: None - Physical Assessment NPO Status Date: 02/06/21 NPO Status Time: 00:00 Height: 5 ft 7 in Weight: 317 lb ASA Class: 3 Mental Status: Alert & Oriented x3 Airway Class: Mallampati = 2 Dentition: Reports: Normal Dentition Thyro-Mental Finger Breadths: 3 Mouth Opening Finger Breadths: 3 ROM/Head Extension: Full Lungs: Clear to Auscultation, Normal Respiratory Effort Cardiovascular: Regular Rate, Regular Rhythm - Lab Values: Laboratory Last Values WBC 6.70 K/uL (4.0-11.0) 02/06/21 05:46 RBC 4.15 M/uL (4.30-5.90) L 02/06/21 05:46 Hgb 12.7 g/dL (12.0-16.0) 02/06/21 05:46 Hct 35.8 % (36.0-46.0) L 02/06/21 05:46 MCV 86.3 fL (80.0-98.0) 02/06/21 05:46 MCH 30.6 pg (27.0-32.0) 02/06/21 05:46 MCHC 35.5 g/dL (31.0-37.0) 02/06/21 05:46 RDW Std Deviation 41.3 fl (28.0-62.0) 02/06/21 05:46 RDW Coeff of Nayeli 13 % (11.0-15.0) 02/06/21 05:46 Plt Count 169 K/uL (150-400) 02/06/21 05:46 MPV 10.80 fL (7.40-12.00) 02/06/21 05:46 Nucleated RBC % 0.0 /100WBC 02/06/21 05:46 Nucleated RBCs # 0 K/uL 02/06/21 05:46 - Allergies Allergies/Adverse Reactions: Allergies Allergy/AdvReac Type Severity Reaction Status Date / Time No Known Allergies Allergy Verified 01/31/21 08:13 - Anesthesia Plan Pre-Op Medication Ordered: Antacids - Acknowledgements Anesthesia Type Planned: Spinal Pt an Appropriate Candidate for the Planned Anesthesia: Yes Alternatives and Risks of Anesthesia Discussed w Pt/Guardian: Yes Pt/Guardian Understands and Agrees with Anesthesia Plan: Yes PreAnesthesia Questionnaire - Past Health History Medical/Surgical History: Denies Medical/Surgical History HEENT History: Reports: None Cardiovascular History: Reports: None Respiratory History: Reports: None Gastrointestinal History: Reports: Cholelithiasis Other Gastrointestinal History: "gallstones" Genitourinary History: Reports: None 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: Musculoskeletal History: Reports: Fracture Other Musculoskeletal History: hx fx wrist Neurological History: Reports: None Psychiatric History: Reports: None Endocrine/Metabolic History: Reports: Obesity/BMI 30+ Hematologic History: Reports: None Immunologic History: Reports: None Oncologic (Cancer) History: Reports: None Dermatologic History: Reports: None - Infectious Disease History Infectious Disease History: Reports: Chicken Pox - Past Surgical History Head Surgeries/Procedures: Reports: None HEENT Surgical History: Reports: None Cardiovascular Surgical History: Reports: None Respiratory Surgical History: Reports: None GI Surgical History: Reports: Appendectomy Female Surgical History: Reports: Section Other Female Surgeries/Procedures: C/Section x3 Endocrine Surgical History: Reports: None Neurological Surgical History: Reports: None Musculoskeletal Surgical History: Reports: None Oncologic Surgical History: Reports: None Dermatological Surgical History: Reports: None - SUBSTANCE USE Tobacco Use Status *Q: Former Tobacco User Tobacco Use Within Last Twelve Months: Cigarettes Second Hand Smoke Exposure: No Recreational Drug Use History: No - HOME MEDS Home Medications: Home Meds Pnv No.95/Ferrous Fum/Folic AC [ Vitamin Tablet] 1 tab PO DAILY 01/31/21 [History] Vitamin C/Biotin [Hair, Skin and Nails Gummies] 1 tab.chew CHEW DAILY 01/31/21 [History] - CURRENT (IN HOUSE) MEDS Current Meds: Current Medications Oxytocin/Sodium Chloride (Oxytocin 30 Unit In Ns 0.9% 500 Ml Premix) 30 unit in 500 mls @ 250 mls/hr IV TITRATE ОЛЬГА Cefazolin Sodium/Dextrose 2 gm (/ Premix) 50 mls @ 100 mls/hr IV ONETIME ONE Stop: 02/06/21 08:29 Lactated Ringer's (Ringers, Lactated) 1,000 mls @ 500 mls/hr IV BOLUS ОЛЬГА Last Admin: 02/06/21 07:00 Dose: 500 mls/hr Documented by: Ondansetron HCl (Ondansetron 4 Mg/2 Ml Sdv) 4 mg IVPUSH Q4H PRN PRN Reason: Nausea/Vomiting Sodium Chloride (Sodium Chloride 0.9% 10 Ml Syringe) 10 ml FLUSH ASDIRECTED PRN PRN Reason: Keep Vein Open Sodium Chloride (Sodium Chloride 0.9% 2.5 Ml Syringe) 2.5 ml FLUSH ASDIRECTED PRN PRN Reason: Keep Vein Open Sodium Chloride (Sodium Chloride 0.9% 20 Ml Sdv) 10 ml IV ASDIRECTED PRN PRN Reason: IV Use Discontinued Medications Citric Acid/Sodium Citrate (Citric Acid/Sodium Citrate Solution 30 Ml Cup) 30 ml PO ONETIME ONE Stop: 02/06/21 05:53 Fentanyl (Fentanyl 100 Mcg/2 Ml Sdv) Confirm Administered Dose 100 mcg .ROUTE .STK-MED ONE Stop: 02/06/21 07:07 Miscellaneous Medication (Phenylephrine Hcl In 0.9% Nacl 1 Mg/10 Ml Syringe) Confirm Administered Dose 1 mg .ROUTE .STK-MED ONE Stop: 02/06/21 07:07 Morphine Sulfate (Morphine Pf 10 Mg/10 Ml Sdv) Confirm Administered Dose 10 mg .ROUTE .STK-MED ONE Stop: 02/06/21 07:07 Ondansetron HCl (Ondansetron 4 Mg/2 Ml Sdv) Confirm Administered Dose 4 mg .ROUTE .STK-MED ONE Stop: 02/06/21 07:07 Ondansetron HCl (Ondansetron 4 Mg/2 Ml Sdv) Confirm Administered Dose 4 mg .ROUTE .STK-MED ONE Stop: 02/06/21 07:07 Oxytocin (Oxytocin 10 Units/1 Ml Sdv) Confirm Administered Dose 10 unit .ROUTE .STK-MED ONE Stop: 02/06/21 07:07 Oxytocin (Oxytocin 10 Units/1 Ml Sdv) Confirm Administered Dose 10 unit .ROUTE .STK-MED ONE Stop: 02/06/21 07:07 Oxytocin (Oxytocin 10 Units/1 Ml Sdv) Confirm Administered Dose 10 unit .ROUTE .STK-MED ONE Stop: 02/06/21 07:07
[2021-02-06] MEDS ORDERED: Octyl 2-Cyanoacrylate 1 Tube ONE (07:36)
[2021-02-06] MEDS ORDERED: ceFAZolin 2 GM in Premix Bag 1 BAG IV ONE (08:00)
[2021-02-06] MEDS ORDERED: Methylergonovine 0.2 MG/1 ML Amp IM PRN (08:18)
[2021-02-06] MEDS ORDERED: Misoprostol 200 MCG Tab RECTAL PRN (08:18)
[2021-02-06] MEDS ORDERED: Ibuprofen 800 MG Tab PO PRN (08:18)
[2021-02-06] MEDS ORDERED: Lanolin 100% Cream 7 GM Tube TOP PRN (08:18)
[2021-02-06] MEDS ORDERED: Tranexamic Acid 1,000 MG in Sodium Chloride 0.9% 100 ML IV PRN (08:18)
[2021-02-06] MEDS ORDERED: Bisacodyl 10 MG Supp RECTAL PRN (08:18)
[2021-02-06] MEDS ORDERED: Oxytocin 10 Units/1 ML SDV IM PRN (08:18)
--- NOTE | 2021-02-06 08:18 | PCM.LDHP ---
L&D History of Present Illness - General Date of Service: 02/06/21 Admit Problem/Dx: Patient Status Order with Admit Dx/Problem 02/06/21 05:00 Patient Status [ADT] Routine Admission Diagnosis/Problem Admission Diagnosis/Problem Source of Information: Patient History Limitations: Reports: No Limitations - History of Present Illness Improves with: Reports: None Worsens with: Reports: None Associated Symptoms: Reports: N - Related Data Allergies/Adverse Reactions: Allergies Allergy/AdvReac Type Severity Reaction Status Date / Time No Known Allergies Allergy Verified 01/31/21 08:13 Home Medications: Home Meds Pnv No.95/Ferrous Fum/Folic AC [ Vitamin Tablet] 1 tab PO DAILY 01/31/21 [History] Vitamin C/Biotin [Hair, Skin and Nails Gummies] 1 tab.chew CHEW DAILY 01/31/21 [History] Past Medical History - Past Health History Medical/Surgical History: Denies Medical/Surgical History HEENT History: Reports: None Cardiovascular History: Reports: None Respiratory History: Reports: None Gastrointestinal History: Reports: Cholelithiasis Other Gastrointestinal History: "gallstones" Genitourinary History: Reports: None 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: Musculoskeletal History: Reports: Fracture Other Musculoskeletal History: hx fx wrist Neurological History: Reports: None Psychiatric History: Reports: None Endocrine/Metabolic History: Reports: Obesity/BMI 30+ Hematologic History: Reports: None Immunologic History: Reports: None Oncologic (Cancer) History: Reports: None Dermatologic History: Reports: None - Infectious Disease History Infectious Disease History: Reports: Chicken Pox - Past Surgical History Head Surgeries/Procedures: Reports: None HEENT Surgical History: Reports: None Cardiovascular Surgical History: Reports: None Respiratory Surgical History: Reports: None GI Surgical History: Reports: Appendectomy Female Surgical History: Reports: Section Other Female Surgeries/Procedures: C/Section x3 Endocrine Surgical History: Reports: None Neurological Surgical History: Reports: None Musculoskeletal Surgical History: Reports: None Oncologic Surgical History: Reports: None Dermatological Surgical History: Reports: None Social & Family History - Family History Family Medical History: No Pertinent Family History - Tobacco Use Tobacco Use Status *Q: Former Tobacco User Used Tobacco, but Quit: Yes Month/Year Tobacco Last Used: 03/2020 Second Hand Smoke Exposure: No - Caffeine Use Caffeine Use: Reports: Coffee, Soda - Recreational Drug Use Recreational Drug Use: No Drug Use in Last 12 Months: No H&P Review of Systems - Review of Systems: Review Of Systems: See Below General: Reports: No Symptoms HEENT: Reports: No Symptoms Pulmonary: Reports: No Symptoms Cardiovascular: Reports: No Symptoms Gastrointestinal: Reports: No Symptoms Genitourinary: Reports: No Symptoms Musculoskeletal: Reports: No Symptoms Skin: Reports: No Symptoms Psychiatric: Reports: No Symptoms Neurological: Reports: No Symptoms Hematologic/Lymphatic: Reports: No Symptoms Immunologic: Reports: No Symptoms L&D Exam - Exam Exam: See Below - Vital Signs Weight: 143.789 kg - OB Specific Contraction Intensity: Mild Movement: Active Heart Tones: Present Presentation: Vertex - Bardales Score Bardales Score Cervix Position: Posterior Bardales Score Consistency: Medium Bardales Score Effacement: 31-50% Bardales Score Dilation: Closed Bardales Score 's Station: -3 Bardales Score Total: 2 - Exam General: Alert, Oriented HEENT: PERRLA, Conjunctiva Clear, EACs Clear, EOMI, Hearing Intact, Mucosa Moist & [place], Nares Patent, Normal Nasal Septum, Posterior Pharynx Clear, TMs Clear Neck: Supple, Trachea Midline Lungs: Clear to Auscultation, Normal Respiratory Effort Cardiovascular: Regular Rate, Regular Rhythm GI/Abdominal Exam: Normal Bowel Sounds, Soft, Non-Tender, No Organomegaly, No Distention, No Abnormal Bruit, No Mass, Pelvis Stable Rectal Exam: Normal Exam, Normal Rectal Tone Genitourinary: Normal external exam, Normal bimanual exam, Normal speculum exam Back Exam: Normal Inspection, Full Range of Motion Extremities: Normal Inspection, Normal Range of Motion, Non-Tender, No Pedal Edema, Normal Capillary Refill Skin: Warm, Dry, Intact Neurological: Cranial Nerves Intact, Reflexes Equal Bilateral Psychiatric: Alert, Normal Affect, Normal Mood - Patient Data Lab Results Last 24 hrs: Laboratory Results - last 24 hr 02/06/21 02/06/21 Range/Units 05:46 05:46 WBC 6.70 (4.0-11.0) K/uL RBC 4.15 L (4.30-5.90) M/uL Hgb 12.7 (12.0-16.0) g/dL Hct 35.8 L (36.0-46.0) % MCV 86.3 (80.0-98.0) fL MCH 30.6 (27.0-32.0) pg MCHC 35.5 (31.0-37.0) g/dL RDW Std Deviation 41.3 (28.0-62.0) fl RDW Coeff of Nayeli 13 (11.0-15.0) % Plt Count 169 (150-400) K/uL MPV 10.80 (7.40-12.00) fL Nucleated RBC % 0.0 /100WBC Nucleated RBCs # 0 K/uL Blood Type B POSITIVE Antibody Screen NEGATIVE Result Diagrams: 02/06/21 05:46 Problem List Initiated/Reviewed/Updated: Yes Orders Last 24hrs: Active Orders 24 hr Category Date Time Status Patient Status [ADT] Routine ADT 02/06/21 05:00 Active Antiembolic Devices [RC] PER UNIT ROUTINE Care 02/06/21 05:53 Active Blood Glucose Check, Bedside [RC] PRN Care 02/06/21 07:09 Active Bradycardia-Neuroaxis [employer] [RC] ROUTINE Care 02/06/21 07:09 Active Hypertension-Neuroaxis [employer] [RC] ROUTINE Care 02/06/21 07:09 Active Hypotension-Neuroaxis [employer] [RC] ROUTINE Care 02/06/21 07:09 Active Insert Urinary Catheter [OM.PC] Routine Care 02/06/21 05:52 Ordered Notify Provider Vital Signs [RC] ASDIRECTED Care 02/06/21 07:09 Active Notify Provider Vital Signs [RC] PRN Care 02/06/21 05:55 Active Overnight Pulse Oximetry [RC] Click to Edit Care 02/06/21 07:09 Active Oxygen Therapy [RC] PER UNIT ROUTINE Care 02/06/21 07:09 Active Oxygen Therapy [RC] PRN Care 02/06/21 07:09 Active Procedure Site Prep Instruct [RC] ASDIRECTED Care 02/06/21 05:52 Active RT Aerosol Therapy [RC] ASDIRECTED Care 02/06/21 07:09 Active RT Aerosol Therapy [RC] ASDIRECTED Care 02/06/21 07:09 Active RT BiPAP/CPAP [RC] ASDIRECTED Care 02/06/21 07:09 Active Up ad Mira [RC] ASDIRECTED Care 02/06/21 05:52 Active Urinary Catheter Assessment [RC] ASDIRECTED Care 02/06/21 05:53 Active Verify Patient Consent Obtain [RC] ASDIRECTED Care 02/06/21 05:52 Active Vital Signs [RC] PER UNIT ROUTINE Care 02/06/21 05:52 Active Vital Signs [RC] Q1H Care 02/06/21 07:09 Active Vital Signs [RC] Q5M Care 02/06/21 07:09 Active RPR (SYPHILIS SERO) W/ RFLX [REF] Routine Lab 02/06/21 05:46 Received Acetaminophen/oxyCODONE [Percocet 325-5 MG] Med 02/06/21 07:09 Active 2 tab PO Q6H PRN Albuterol [Proventil Neb Soln] Med 02/06/21 07:09 Active 2.5 mg NEB ONETIME PRN HYDROmorphone [Dilaudid] Med 02/06/21 07:09 Active 1 mg IVPUSH Q10M PRN Lactated Ringers [Ringers, Lactated] 1,000 ml Med 02/06/21 06:00 Active IV BOLUS Metoclopramide [Reglan] Med 02/06/21 07:09 Active 10 mg IVPUSH ONETIME PRN Morphine Med 02/06/21 07:09 Active 2 mg IVPUSH Q10M PRN Nalbuphine [Nubain] Med 02/06/21 07:09 Active 5 mg IVPUSH Q30M PRN Naloxone [Narcan] Med 02/06/21 07:09 Active 0.1 mg IVPUSH ASDIRECTED PRN Ondansetron [Zofran] Med 02/06/21 07:09 Active 4 mg IVPUSH ONETIME PRN Ondansetron [Zofran] Med 02/06/21 05:52 Active 4 mg IVPUSH Q4H PRN Ondansetron [Zofran] Med 02/06/21 07:09 Active 4 mg IVPUSH Q6H PRN Oxytocin/0.9 % Sodium Chloride [Oxytocin 30 Unit in NS Med 02/06/21 06:00 Active 0.9% 500 ML Premix] 30 unit in 500 ml IV TITRATE Sodium Chloride 0.9% [Normal Saline] Med 02/06/21 05:52 Active 10 ml IV ASDIRECTED PRN Sodium Chloride 0.9% [Saline Flush] Med 02/06/21 05:52 Active 10 ml FLUSH ASDIRECTED PRN Sodium Chloride 0.9% [Saline Flush] Med 02/06/21 05:52 Active 2.5 ml FLUSH ASDIRECTED PRN ceFAZolin [Ancef] 2 gm Med 02/06/21 08:00 Active Premix Bag 1 bag IV ONETIME diphenhydrAMINE [Benadryl] Med 02/06/21 07:09 Active 12.5 mg IVPUSH Q2H PRN droperidoL [Inapsine] Med 02/06/21 07:09 Active 0.625 mg IVPUSH ONETIME PRN fentaNYL [Sublimaze] Med 02/06/21 07:09 Active 50 mcg IVPUSH Q15M PRN fentaNYL [Sublimaze] Med 02/06/21 07:09 Active 50 mcg IVPUSH Q5M PRN Peripheral IV Insertion Adult [OM.PC] Routine Oth 02/06/21 05:52 Ordered Pulse Oximetry Continuous Monitoring [OM.PC] Routine Oth 02/06/21 07:09 Ordered Schedule Procedure [COMM] Per Unit Routine Oth 02/06/21 05:52 Ordered Sequential Compression Device [OM.PC] Routine Oth 02/06/21 05:52 Ordered Resuscitation Status Routine Resus Stat 02/06/21 05:52 Ordered Medication Orders Albuterol (Albuterol 0.083% 2.5 Mg/3 Ml Neb Soln) 2.5 mg NEB ONETIME PRN PRN Reason: Wheezing Diphenhydramine HCl (Diphenhydramine 50 Mg/Ml Sdv) 12.5 mg IVPUSH Q2H PRN PRN Reason: Itching Droperidol (Droperidol 5 Mg/2 Ml Sdv) 0.625 mg IVPUSH ONETIME PRN PRN Reason: Nausea/Vomiting Fentanyl (Fentanyl 100 Mcg/2 Ml Sdv) 50 mcg IVPUSH Q15M PRN PRN Reason: Pain (severe 7-10) Fentanyl (Fentanyl 100 Mcg/2 Ml Sdv) 50 mcg IVPUSH Q5M PRN PRN Reason: Pain (mild 1-3) Hydromorphone HCl (Hydromorphone 1 Mg/Ml Syringe) 1 mg IVPUSH Q10M PRN PRN Reason: Pain (moderate 4-6) Oxytocin/Sodium Chloride (Oxytocin 30 Unit In Ns 0.9% 500 Ml Premix) 30 unit in 500 mls @ 250 mls/hr IV TITRATE ОЛЬГА Cefazolin Sodium/Dextrose 2 gm (/ Premix) 50 mls @ 100 mls/hr IV ONETIME ONE Stop: 02/06/21 08:29 Lactated Ringer's (Ringers, Lactated) 1,000 mls @ 500 mls/hr IV BOLUS ОЛЬГА Last Admin: 02/06/21 07:00 Dose: 500 mls/hr Documented by: Infusion: 02/06/21 07:00 Dose: 500 mls/hr Documented by: Admin: 02/06/21 05:35 Dose: 500 mls/hr Documented by: NITESH Metoclopramide HCl (Metoclopramide 10 Mg/2 Ml Sdv) 10 mg IVPUSH ONETIME PRN PRN Reason: Nausea/Vomiting Morphine Sulfate (Morphine 2 Mg/Ml Syringe) 2 mg IVPUSH Q10M PRN PRN Reason: Pain (severe 7-10) Nalbuphine HCl (Nalbuphine 10 Mg/1 Ml Vial) 5 mg IVPUSH Q30M PRN PRN Reason: Itching Naloxone HCl (Naloxone 0.4 Mg/Ml Sdv) 0.1 mg IVPUSH ASDIRECTED PRN PRN Reason: Respiratory Depression Ondansetron HCl (Ondansetron 4 Mg/2 Ml Sdv) 4 mg IVPUSH Q4H PRN PRN Reason: Nausea/Vomiting Ondansetron HCl (Ondansetron 4 Mg/2 Ml Sdv) 4 mg IVPUSH Q6H PRN PRN Reason: Nausea Ondansetron HCl (Ondansetron 4 Mg/2 Ml Sdv) 4 mg IVPUSH ONETIME PRN PRN Reason: Nausea/Vomiting Oxycodone/Acetaminophen (Acetaminophen/Oxycodone 325-5 Mg Tab) 2 tab PO Q6H PRN PRN Reason: Pain (moderate 4-6) Sodium Chloride (Sodium Chloride 0.9% 10 Ml Syringe) 10 ml FLUSH ASDIRECTED PRN PRN Reason: Keep Vein Open Sodium Chloride (Sodium Chloride 0.9% 2.5 Ml Syringe) 2.5 ml FLUSH ASDIRECTED PRN PRN Reason: Keep Vein Open Sodium Chloride (Sodium Chloride 0.9% 20 Ml Sdv) 10 ml IV ASDIRECTED PRN PRN Reason: IV Use Assessment/Plan Comment:: Previous C/section X3.
[2021-02-06] MEDS ORDERED: Ketorolac 30 MG/ML SDV IVPUSH SCH (08:30)
--- NOTE | 2021-02-06 09:39 | PCM48HPAN ---
Post Anesthesia Note - EVALUATION WITHIN 48HRS OF ANESTHETIC Vital Signs in Normal Range: Yes Patient Participated in Evaluation: Yes Respiratory Function Stable: Yes Airway Patent: Yes Cardiovascular Function Stable: Yes Hydration Status Stable: Yes Pain Control Satisfactory: Yes Nausea and Vomiting Control Satisfactory: Yes Mental Status Recovered: Yes
--- NOTE | 2021-02-06 09:39 | PCM.POSTAN ---
POST ANESTHESIA ASSESSMENT - MENTAL STATUS Mental Status: Alert, Oriented - RESPIRATORY Respiratory Status: Respiratory Rate WNL, Airway Patent, O2 Saturation Stable - CARDIOVASCULAR CV Status: Pulse Rate WNL, Blood Pressure Stable - GASTROINTESTINAL GI Status: No Symptoms - POST OP HYDRATION Hydration Status: Adequate & Stable
--- NOTE | 2021-02-06 09:42 | PCM.SN.2 ---
- Free Text/Narrative Note: Anesthesia Start: 936 Anesthesia Stop: 939 Following procedure and a block time out, a 21g 6 inch echogenic stimuplex needle was used under US guidance to place Bilateral TAPS blocks for post op analgesia at request of surgeon. 30cc of 0.5% Naropin per side (60cc total) was injected in 5cc increments. No complications Antwon Lew MD
[2021-02-06 14:19] LABS: BLOOD UREA NITROGEN,BUN 7 mg/dL (7.0-18.0); CARBON DIOXIDE,CO2 22.1 mmol/L (21.0-32.0); CHLORIDE,CL 107 mmol/L (98-107); GLUCOSE RANDOM 99 mg/dL (74-106); POTASSIUM,K 3.8 mmol/L (3.5-5.1); SODIUM,NA 140 mmol/L (136-145)
[2021-02-06] MEDS: Ketorolac 30 MG/ML SDV IVPUSH SCH ×2 (16:07→22:18)
[2021-02-06] MEDS: Docusate Sodium 100 MG Cap PO SCH ×2 (17:51→22:17)
--- NOTE | 2021-02-07 01:36 | OR ---
SURGEON: Petrona Manning MD DATE OF PROCEDURE: 02/06/2021 INDICATION FOR SURGERY: Term , history of repeat low-transverse . PREOPERATIVE DIAGNOSIS: Term , history of section. POSTOPERATIVE DIAGNOSIS: Term , history of section, live . OPERATION: section. PRIMARY SURGEON: Petrona Manning MD; and Oswald Morel MD ANESTHESIA: Spinal. ANESTHESIOLOGIST: Antwon Lew. INTRAOPERATIVE FLUID REPLACEMENT: 1000 mL. ESTIMATED BLOOD LOSS: 1000 mL. URINE OUTPUT: 100 mL, clear. DRAIN AND PACK: Cordova catheter draining clear urine. SPECIMEN: None. DELIVERY DETAILS: Gender, female. weight 9 pounds 3 ounces. scores 8 and 9. PLACENTA DELIVERY METHOD: Spontaneous. MATERNAL DELIVERY COMPLICATIONS: None. COMPLICATIONS: None. TECHNIQUE: Alba Schaffer was taken to the operating room. She was then transferred to the operating table and placed in the dorsal supine position with a leftward tilt. After adequate anesthesia was confirmed, she was prepped and draped in the usual sterile fashion. A time-out was completed. With IV fluid running and Cordova catheter draining, a Pfannenstiel skin incision was made and carried down with the Bovie cautery through the subcutaneous tissue to the underlying rectus fascia. The rectus fascia was incised in the midline and extended laterally with Christopher scissors. The underlying rectus muscle was then dissected off and in the midline. The parietal peritoneum was opened and a self-retaining retractor was placed. The lower uterine segment was identified in the surgical field. A small uterine window was also identified, size diameter about 1 cm. A bladder flap was made in the lower uterine segment, was punctured with a Holli clamp through the uterine window, and it was extended laterally with cephalocaudal traction. The 's vertex was delivered atraumatically, followed by the remainder of the . The cord was clamped and cut and the infant was handed off to the pediatric staff. Cord blood was collected for possible gas. The placenta was delivered spontaneously. Of note, the amniotic fluid was meconium stained, and there was also terminal meconium at delivery. The uterus was then cleaned of all clots and debris and the incision was reapproximated in a running locked stitch fashion utilizing an 0 Vicryl. A second running stitch imbricating the first layer was performed utilizing another 0 Vicryl. Hemostasis was excellent. The self-retaining retractor was removed and the peritoneum was closed in a running stitch fashion utilizing 3-0 Vicryl. The rectus fascia was reapproximated with a PDS in a running stitch fashion. The subcutaneous tissue was closed with a running stitch utilizing 3-0 Vicryl. Hemostasis was also assured. The skin was then closed with an absorbable staple. All sponges, needle, and instrument counts were correct per the OR nursing staff. The patient was taken to the recovery room in stable condition. Prior to the surgery, the patient had received 2 grams of Ancef. MALIK / MARLENI /[id number] MTDD
[2021-02-07] MEDS: Ketorolac 30 MG/ML SDV IVPUSH SCH ×2 (06:07→13:35)
--- NOTE | 2021-02-07 09:18 | PCM.PNPP ---
- General Info Date of Service: 02/07/21 Admission Dx/Problem (Free Text): Patient Status Order with Admit Dx/Problem 02/06/21 05:00 Patient Status [ADT] Routine Admission Diagnosis/Problem Admission Diagnosis/Problem Subjective Update: 30yo G4 now P4005 s/p uncomplicated RLTCS at 39w2d. c/b prior CS x3. Mom and baby are doing well. Functional Status: Reports: Pain Controlled - Review of Systems General: Reports: No Symptoms HEENT: Reports: No Symptoms Pulmonary: Reports: No Symptoms Cardiovascular: Reports: No Symptoms Gastrointestinal: Reports: No Symptoms Genitourinary: Reports: No Symptoms Musculoskeletal: Reports: No Symptoms Skin: Reports: No Symptoms Neurological: Reports: No Symptoms Psychiatric: Reports: No Symptoms - General Info Date of Service: 02/07/21 - Patient Data Vital Signs - Most Recent: Last Vital Signs Temp 98.4 F 02/07/21 08:17 Pulse 88 02/07/21 08:17 Resp 18 02/07/21 08:17 BP 121/68 02/07/21 08:17 Pulse Ox 97 02/07/21 08:17 Weight - Most Recent: 143.789 kg I&O - Last 24 Hours: Intake & Output 02/06/21 02/07/21 02/07/21 22:59 06:59 14:59 Output Total 380 4000 Balance -380 -4000 Lab Results - Last 24 Hours: Laboratory Results - last 24 hr 02/06/21 02/06/21 02/06/21 Range/Units 05:46 13:37 13:37 WBC 11.11 H (4.0-11.0) K/uL RBC 4.10 L (4.30-5.90) M/uL Hgb 12.4 (12.0-16.0) g/dL Hct 35.6 L (36.0-46.0) % MCV 86.8 (80.0-98.0) fL MCH 30.2 (27.0-32.0) pg MCHC 34.8 (31.0-37.0) g/dL RDW Std Deviation 41.6 (28.0-62.0) fl RDW Coeff of Nayeli 13 (11.0-15.0) % Plt Count 156 (150-400) K/uL MPV 10.70 (7.40-12.00) fL Neut % (Auto) 78.6 (48.0-80.0) % Lymph % (Auto) 12.5 L (16.0-40.0) % [place] % (Auto) 8.6 (0.0-15.0) % Eos % (Auto) 0.2 (0.0-7.0) % Baso % (Auto) 0.1 (0.0-1.5) % Neut # (Auto) 8.7 H (1.4-5.7) K/uL Lymph # (Auto) 1.4 (0.6-2.4) K/uL [place] # (Auto) 1.0 H (0.0-0.8) K/uL Eos # (Auto) 0.0 (0.0-0.7) K/uL Baso # (Auto) 0.0 (0.0-0.1) K/uL Nucleated RBC % 0.0 /100WBC Nucleated RBCs # 0 K/uL INR Fibrinogen 430 H (215-411) mg/dL Sodium (136-145) mmol/L Potassium (3.5-5.1) mmol/L Chloride (98-107) mmol/L Carbon Dioxide (21.0-32.0) mmol/L BUN (7.0-18.0) mg/dL Creatinine (0.6-1.0) mg/dL Est Cr Clr Drug Dosing mL/min Estimated GFR (MDRD) ml/min Glucose (74-106) mg/dL Calcium (8.5-10.1) mg/dL Total Bilirubin (0.2-1.0) mg/dL AST (15-37) IU/L ALT (14-63) IU/L Alkaline Phosphatase (46-116) U/L Total Protein (6.4-8.2) g/dL Albumin (3.4-5.0) g/dL Globulin (2.6-4.0) g/dL Albumin/Globulin Ratio (0.9-1.6) Blood Type B POSITIVE Antibody Screen NEGATIVE Crossmatch See Detail 02/06/21 02/06/21 02/07/21 Range/Units 13:37 13:37 05:53 WBC (4.0-11.0) K/uL RBC (4.30-5.90) M/uL Hgb 10.8 L (12.0-16.0) g/dL Hct 30.4 L (36.0-46.0) % MCV (80.0-98.0) fL MCH (27.0-32.0) pg MCHC (31.0-37.0) g/dL RDW Std Deviation (28.0-62.0) fl RDW Coeff of Nayeli (11.0-15.0) % Plt Count (150-400) K/uL MPV (7.40-12.00) fL Neut % (Auto) (48.0-80.0) % Lymph % (Auto) (16.0-40.0) % [place] % (Auto) (0.0-15.0) % Eos % (Auto) (0.0-7.0) % Baso % (Auto) (0.0-1.5) % Neut # (Auto) (1.4-5.7) K/uL Lymph # (Auto) (0.6-2.4) K/uL [place] # (Auto) (0.0-0.8) K/uL Eos # (Auto) (0.0-0.7) K/uL Baso # (Auto) (0.0-0.1) K/uL Nucleated RBC % /100WBC Nucleated RBCs # K/uL INR 0.97 Fibrinogen (215-411) mg/dL Sodium 140 (136-145) mmol/L Potassium 3.8 (3.5-5.1) mmol/L Chloride 107 (98-107) mmol/L Carbon Dioxide 22.1 (21.0-32.0) mmol/L BUN 7 (7.0-18.0) mg/dL Creatinine 0.7 (0.6-1.0) mg/dL Est Cr Clr Drug Dosing 114.28 mL/min Estimated GFR (MDRD) > 60.0 ml/min Glucose 99 (74-106) mg/dL Calcium 8.5 (8.5-10.1) mg/dL Total Bilirubin 0.4 (0.2-1.0) mg/dL AST 20 (15-37) IU/L ALT 25 (14-63) IU/L Alkaline Phosphatase 107 (46-116) U/L Total Protein 6.0 L (6.4-8.2) g/dL Albumin 2.4 L (3.4-5.0) g/dL Globulin 3.6 (2.6-4.0) g/dL Albumin/Globulin Ratio 0.7 L (0.9-1.6) Blood Type Antibody Screen Crossmatch Med Orders - Current: Current Medications Albuterol (Albuterol 0.083% 2.5 Mg/3 Ml Neb Soln) 2.5 mg NEB ONETIME PRN PRN Reason: Wheezing Bisacodyl (Bisacodyl 10 Mg Supp) 10 mg RECTAL ONETIME PRN PRN Reason: Constipation Diphenhydramine HCl (Diphenhydramine 50 Mg/Ml Sdv) 12.5 mg IVPUSH Q2H PRN PRN Reason: Itching Diphenhydramine HCl (Diphenhydramine 50 Mg/Ml Sdv) 25 mg IVPUSH Q6H PRN PRN Reason: Itching or Nausea Docusate Sodium (Docusate Sodium 100 Mg Cap) 100 mg PO BID [facility] Last Admin: 02/06/21 22:17 Dose: 100 mg Documented by: Emollient Ointment (Lanolin 100% Cream 7 Gm Tube) 0 gm TOP ASDIRECTED PRN PRN Reason: Sore Nipples Last Admin: 02/06/21 15:51 Dose: 1 tub Documented by: Fentanyl (Fentanyl 100 Mcg/2 Ml Sdv) 50 mcg IVPUSH Q15M PRN PRN Reason: Pain (severe 7-10) Fentanyl (Fentanyl 100 Mcg/2 Ml Sdv) 50 mcg IVPUSH Q5M PRN PRN Reason: Pain (mild 1-3) Hydromorphone HCl (Hydromorphone 1 Mg/Ml Syringe) 1 mg IVPUSH Q10M PRN PRN Reason: Pain (moderate 4-6) Oxytocin/Sodium Chloride (Oxytocin 30 Unit In Ns 0.9% 500 Ml Premix) 30 unit in 500 mls @ 250 mls/hr IV TITRATE [facility] Lactated Ringer's (Ringers, Lactated) 1,000 mls @ 500 mls/hr IV BOLUS [facility] Last Admin: 02/06/21 07:00 Dose: 500 mls/hr Documented by: Lactated Ringer's (Ringers, Lactated) 1,000 mls @ 125 mls/hr IV ASDIRECTED [facility] Last Admin: 02/06/21 17:56 Dose: 125 mls/hr Documented by: Tranexamic Acid 1,000 mg/ (Sodium Chloride) 110 mls @ 660 mls/hr IV ONETIME PRN PRN Reason: Bleeding Ibuprofen (Ibuprofen 800 Mg Tab) 800 mg PO Q8H PRN PRN Reason: Cramping Ketorolac Tromethamine (Ketorolac 30 Mg/Ml Sdv) 30 mg IVPUSH Q6H [facility] Stop: 02/07/21 10:31 Last Admin: 02/07/21 06:07 Dose: 30 mg Documented by: Methylergonovine Maleate (Methylergonovine 0.2 Mg/1 Ml Amp) 0.2 mg IM ONETIME PRN PRN Reason: Excessive Vaginal Bleeding Metoclopramide HCl (Metoclopramide 10 Mg/2 Ml Sdv) 10 mg IVPUSH ONETIME PRN PRN Reason: Nausea/Vomiting Misoprostol (Misoprostol 200 Mcg Tab) 1,000 mcg RECTAL ONETIME PRN PRN Reason: excessive bleeding Morphine Sulfate (Morphine 2 Mg/Ml Syringe) 2 mg IVPUSH Q10M PRN PRN Reason: Pain (severe 7-10) Nalbuphine HCl (Nalbuphine 10 Mg/1 Ml Vial) 5 mg IVPUSH Q30M PRN PRN Reason: Itching Last Admin: 02/06/21 10:09 Dose: 5 mg Documented by: Naloxone HCl (Naloxone 0.4 Mg/Ml Sdv) 0.1 mg IVPUSH ASDIRECTED PRN PRN Reason: Respiratory Depression Ondansetron HCl (Ondansetron 4 Mg/2 Ml Sdv) 4 mg IVPUSH Q4H PRN PRN Reason: Nausea/Vomiting Last Admin: 02/06/21 12:52 Dose: 4 mg Documented by: Ondansetron HCl (Ondansetron 4 Mg/2 Ml Sdv) 4 mg IVPUSH Q6H PRN PRN Reason: Nausea Ondansetron HCl (Ondansetron 4 Mg/2 Ml Sdv) 4 mg IVPUSH ONETIME PRN PRN Reason: Nausea/Vomiting Ondansetron HCl (Ondansetron 4 Mg/2 Ml Sdv) 4 mg IVPUSH Q4H PRN PRN Reason: Nausea/Vomiting Oxycodone/Acetaminophen (Acetaminophen/Oxycodone 325-5 Mg Tab) 2 tab PO Q6H PRN PRN Reason: Pain (moderate 4-6) Oxycodone/Acetaminophen (Acetaminophen/Oxycodone 325-5 Mg Tab) 1 tab PO Q4H PRN PRN Reason: Pain (severe 7-10) Oxycodone/Acetaminophen (Acetaminophen/Oxycodone 325-5 Mg Tab) 2 tab PO Q4H PRN PRN Reason: Pain (severe 7-10) Oxytocin (Oxytocin 10 Units/1 Ml Sdv) 10 unit IM ASDIRECTED PRN PRN Reason: Excessive Vaginal Bleeding Sodium Chloride (Sodium Chloride 0.9% 10 Ml Syringe) 10 ml FLUSH ASDIRECTED PRN PRN Reason: Keep Vein Open Sodium Chloride (Sodium Chloride 0.9% 2.5 Ml Syringe) 2.5 ml FLUSH ASDIRECTED PRN PRN Reason: Keep Vein Open Sodium Chloride (Sodium Chloride 0.9% 20 Ml Sdv) 10 ml IV ASDIRECTED PRN PRN Reason: IV Use Discontinued Medications Cefazolin Sodium (Cefazolin 1 Gm Vial) Confirm Administered Dose 1 gm .ROUTE .STK-MED ONE Stop: 02/06/21 07:12 Cefazolin Sodium (Cefazolin 1 Gm Vial) Confirm Administered Dose 1 gm .ROUTE .STK-MED ONE Stop: 02/06/21 07:12 Citric Acid/Sodium Citrate (Citric Acid/Sodium Citrate Solution 30 Ml Cup) 30 ml PO ONETIME ONE Stop: 02/06/21 05:53 Last Admin: 02/06/21 14:48 Dose: Not Given Documented by: Droperidol (Droperidol 5 Mg/2 Ml Sdv) 0.625 mg IVPUSH ONETIME PRN PRN Reason: Nausea/Vomiting Last Admin: 02/06/21 14:30 Dose: 0.625 mg Documented by: Fentanyl (Fentanyl 100 Mcg/2 Ml Sdv) Confirm Administered Dose 100 mcg .ROUTE .STK-MED ONE Stop: 02/06/21 07:07 Cefazolin Sodium/Dextrose 2 gm (/ Premix) 50 mls @ 100 mls/hr IV ONETIME ONE Stop: 02/06/21 08:29 Last Admin: 02/06/21 19:28 Dose: Not Given Documented by: Ketorolac Tromethamine (Ketorolac 30 Mg/Ml Sdv) 30 mg IVPUSH Q6H [facility] Stop: 02/07/21 08:31 Last Admin: 02/06/21 10:12 Dose: 15 mg Documented by: Miscellaneous Medication (Phenylephrine Hcl In 0.9% Nacl 1 Mg/10 Ml Syringe) Confirm Administered Dose 1 mg .ROUTE .STK-MED ONE Stop: 02/06/21 07:07 Miscellaneous Medication (Phenylephrine Hcl In 0.9% Nacl 1 Mg/10 Ml Syringe) Confirm Administered Dose 1 mg .ROUTE .ST-MED ONE Stop: 02/06/21 08:17 Miscellaneous Medication (Phenylephrine Hcl In 0.9% Nacl 1 Mg/10 Ml Syringe) Confirm Administered Dose 1 mg .ROUTE .[facility] ONE Stop: 02/06/21 08:31 Miscellaneous Medication (Phenylephrine Hcl In 0.9% Nacl 1 Mg/10 Ml Syringe) Confirm Administered Dose 1 mg .ROUTE .ST-MED ONE Stop: 02/06/21 08:37 Morphine Sulfate (Morphine Pf 10 Mg/10 Ml Sdv) Confirm Administered Dose 10 mg .ROUTE .ST-MED ONE Stop: 02/06/21 07:07 Octyl Cyanoacrylate (Octyl 2-Cyanoacrylate 1 Tube) Confirm Administered Dose 1 applic .ROUTE .[facility] ONE Stop: 02/06/21 07:37 Last Admin: 02/06/21 14:48 Dose: Not Given Documented by: Ondansetron HCl (Ondansetron 4 Mg/2 Ml Sdv) Confirm Administered Dose 4 mg .ROUTE .ST-MED ONE Stop: 02/06/21 07:07 Ondansetron HCl (Ondansetron 4 Mg/2 Ml Sdv) Confirm Administered Dose 4 mg .ROUTE .ST-MED ONE Stop: 02/06/21 07:07 Oxytocin (Oxytocin 10 Units/1 Ml Sdv) Confirm Administered Dose 10 unit .ROUTE .ST-MED ONE Stop: 02/06/21 07:07 Oxytocin (Oxytocin 10 Units/1 Ml Sdv) Confirm Administered Dose 10 unit .ROUTE .STK-MED ONE Stop: 02/06/21 07:07 Oxytocin (Oxytocin 10 Units/1 Ml Sdv) Confirm Administered Dose 10 unit .ROUTE .ST-MED ONE Stop: 02/06/21 07:07 Ropivacaine (Ropivacaine 0.5% 5 Mg/Ml 30 Ml Sdv) Confirm Administered Dose 30 ml .ROUTE .STK-MED ONE Stop: 02/06/21 07:09 Ropivacaine (Ropivacaine 0.5% 5 Mg/Ml 30 Ml Sdv) Confirm Administered Dose 30 ml .ROUTE .STK-MED ONE Stop: 02/06/21 07:09 - Interaction Support Person: Other (see below) - Recovery Exam Fundal Tone: Firm Fundal Level: 1 Fingerbreadths Below Umbilicus Fundal Placement: Midline Lochia Amount: Small Lochia Color: Rubra/Red Perineum Description: Intact, Minimal Bruising/Swelling Episiotomy/Laceration: None Bladder Status: Voiding Urinary Elimination: Voided - Exam General: Alert, Oriented Lungs: Normal Respiratory Effort Cardiovascular: Regular Rate GI/Abdominal Exam: Soft, Non-Tender Psy/Mental Status: Alert, Normal Affect, Normal Mood - Problem List & Annotations (1) S/P repeat low transverse SNOMED Code(s): 289593842, 08694204, 852577362, 218825046, 013326463 Code(s): Z98.891 - HISTORY OF UTERINE SCAR FROM PREVIOUS SURGERY Status: Acute Priority: High (2) Encounter for maternal care for low transverse scar from repeat delivery SNOMED Code(s): 135548585, 706230633 Code(s): O34.211 - MATERN CARE FOR LOW TRANSVERSE SCAR FROM PREV DEL Status: Acute - Problem List Review Problem List Initiated/Reviewed/Updated: Yes - My Orders Last 24 Hours: My Active Orders 02/07/21 Dinner Regular Diet [DIET] - Plan Plan:: 30yo G4 now P4005 s/p uncomplicated RLTCS at 39w2d. c/b prior CS x3. P: Routine care
[2021-02-07] MEDS ORDERED: Ketorolac 30 MG/ML SDV ONE (13:28)
[2021-02-07] MEDS: Docusate Sodium 100 MG Cap PO SCH (13:36)
--- NOTE | 2021-02-10 16:29 | PCM.DCSUM1 ---
Discharge Summary - Hospital Course Free Text/Narrative:: 30yo G4 now P4005 s/p uncomplicated RLTCS at 39w2d. c/b prior CS x3. Mom and baby are doing well. Diagnosis: Stroke: No - Discharge Data Discharge Date: 02/07/21 Discharge Disposition: Home, Self-Care 01 Condition: Good - Referral to Home Health Primary Care Physician: PCP None - Discharge Diagnosis/Problem(s) (1) S/P repeat low transverse SNOMED Code(s): 568633736, 21211631, 087601084, 116012827, 825093933 ICD Code: Z98.891 - HISTORY OF UTERINE SCAR FROM PREVIOUS SURGERY Status: Acute Priority: High (2) Encounter for maternal care for low transverse scar from repeat delivery SNOMED Code(s): 032204891, 939506714 ICD Code: O34.211 - MATERN CARE FOR LOW TRANSVERSE SCAR FROM PREV DEL Status: Acute - Patient Instructions Diet: Regular Diet as Tolerated Activity: As Tolerated - Discharge Plan *PRESCRIPTION DRUG MONITORING PROGRAM REVIEWED*: Not Applicable *COPY OF PRESCRIPTION DRUG MONITORING REPORT IN PATIENT [place]: Not Applicable Home Medications: Home Meds Pnv No.95/Ferrous Fum/Folic AC [ Vitamin Tablet] 1 tab PO DAILY 01/31/21 [History] Vitamin C/Biotin [Hair, Skin and Nails Gummies] 1 tab.chew CHEW DAILY 01/31/21 [History] Patient Handouts: Baby Blues, and Breast Care, Care After Delivery Referrals: Oswald Morel MD [Physician] - 02/16/21 9:30 am (Post-op appointment with Dr. Morel. You may bring your with you. Masks are required.) - Discharge Summary/Plan Comment DC Time >30 min.: Yes Total # of Minutes for Discharge Time: >30mns - General Info Date of Service: 02/07/21 Admission Dx/Problem (Free Text: Patient Status Order with Admit Dx/Problem 02/06/21 05:00 Patient Status [ADT] Routine Admission Diagnosis/Problem Admission Diagnosis/Problem Subjective Update: 30yo G4 now P4005 s/p uncomplicated RLTCS at 39w2d. c/b prior CS x3. Mom and baby are doing well. Functional Status: Reports: Pain Controlled - Review of Systems General: Reports: No Symptoms HEENT: Reports: No Symptoms Pulmonary: Reports: No Symptoms Cardiovascular: Reports: No Symptoms Gastrointestinal: Reports: No Symptoms Genitourinary: Reports: No Symptoms Musculoskeletal: Reports: No Symptoms Skin: Reports: No Symptoms Neurological: Reports: No Symptoms Psychiatric: Reports: No Symptoms - Patient Data Vitals - Most Recent: Last Vital Signs Temp 98.0 F 02/07/21 15:57 Pulse 83 02/07/21 15:57 Resp 18 02/07/21 15:57 BP 130/68 02/07/21 15:57 Pulse Ox 98 02/07/21 15:57 Weight - Most Recent: 143.789 kg Med Orders - Current: Current Medications Discontinued Medications Albuterol (Albuterol 0.083% 2.5 Mg/3 Ml Neb Soln) 2.5 mg NEB ONETIME PRN PRN Reason: Wheezing Bisacodyl (Bisacodyl 10 Mg Supp) 10 mg RECTAL ONETIME PRN PRN Reason: Constipation Cefazolin Sodium (Cefazolin 1 Gm Vial) Confirm Administered Dose 1 gm .ROUTE .STK-MED ONE Stop: 02/06/21 07:12 Cefazolin Sodium (Cefazolin 1 Gm Vial) Confirm Administered Dose 1 gm .ROUTE .STK-MED ONE Stop: 02/06/21 07:12 Citric Acid/Sodium Citrate (Citric Acid/Sodium Citrate Solution 30 Ml Cup) 30 ml PO ONETIME ONE Stop: 02/06/21 05:53 Last Admin: 02/06/21 14:48 Dose: Not Given Documented by: Diphenhydramine HCl (Diphenhydramine 50 Mg/Ml Sdv) 12.5 mg IVPUSH Q2H PRN PRN Reason: Itching Diphenhydramine HCl (Diphenhydramine 50 Mg/Ml Sdv) 25 mg IVPUSH Q6H PRN PRN Reason: Itching or Nausea Docusate Sodium (Docusate Sodium 100 Mg Cap) 100 mg PO BID [facility] Last Admin: 02/07/21 13:36 Dose: Not Given Documented by: Droperidol (Droperidol 5 Mg/2 Ml Sdv) 0.625 mg IVPUSH ONETIME PRN PRN Reason: Nausea/Vomiting Last Admin: 02/06/21 14:30 Dose: 0.625 mg Documented by: Emollient Ointment (Lanolin 100% Cream 7 Gm Tube) 0 gm TOP ASDIRECTED PRN PRN Reason: Sore Nipples Last Admin: 02/06/21 15:51 Dose: 1 tub Documented by: Fentanyl (Fentanyl 100 Mcg/2 Ml Sdv) Confirm Administered Dose 100 mcg .ROUTE .STK-MED ONE Stop: 02/06/21 07:07 Fentanyl (Fentanyl 100 Mcg/2 Ml Sdv) 50 mcg IVPUSH Q15M PRN PRN Reason: Pain (severe 7-10) Fentanyl (Fentanyl 100 Mcg/2 Ml Sdv) 50 mcg IVPUSH Q5M PRN PRN Reason: Pain (mild 1-3) Hydromorphone HCl (Hydromorphone 1 Mg/Ml Syringe) 1 mg IVPUSH Q10M PRN PRN Reason: Pain (moderate 4-6) Oxytocin/Sodium Chloride (Oxytocin 30 Unit In Ns 0.9% 500 Ml Premix) 30 unit in 500 mls @ 250 mls/hr IV TITRATE [facility] Cefazolin Sodium/Dextrose 2 gm (/ Premix) 50 mls @ 100 mls/hr IV ONETIME ONE Stop: 02/06/21 08:29 Last Admin: 02/06/21 19:28 Dose: Not Given Documented by: Lactated Ringer's (Ringers, Lactated) 1,000 mls @ 500 mls/hr IV BOLUS [facility] Last Admin: 02/06/21 07:00 Dose: 500 mls/hr Documented by: Lactated Ringer's (Ringers, Lactated) 1,000 mls @ 125 mls/hr IV ASDIRECTED [facility] Last Admin: 02/06/21 17:56 Dose: 125 mls/hr Documented by: Tranexamic Acid 1,000 mg/ (Sodium Chloride) 110 mls @ 660 mls/hr IV ONETIME PRN PRN Reason: Bleeding Ibuprofen (Ibuprofen 800 Mg Tab) 800 mg PO Q8H PRN PRN Reason: Cramping Ketorolac Tromethamine (Ketorolac 30 Mg/Ml Sdv) 30 mg IVPUSH Q6H [facility] Stop: 02/07/21 08:31 Last Admin: 02/06/21 10:12 Dose: 15 mg Documented by: Ketorolac Tromethamine (Ketorolac 30 Mg/Ml Sdv) 30 mg IVPUSH Q6H [facility] Stop: 02/07/21 10:31 Last Admin: 02/07/21 13:35 Dose: 30 mg Documented by: Ketorolac Tromethamine (Ketorolac 30 Mg/Ml Sdv) Confirm Administered Dose 30 mg .ROUTE .STK-MED ONE Stop: 02/07/21 13:29 Last Admin: 02/07/21 13:36 Dose: Not Given Documented by: Methylergonovine Maleate (Methylergonovine 0.2 Mg/1 Ml Amp) 0.2 mg IM ONETIME PRN PRN Reason: Excessive Vaginal Bleeding Metoclopramide HCl (Metoclopramide 10 Mg/2 Ml Sdv) 10 mg IVPUSH ONETIME PRN PRN Reason: Nausea/Vomiting Miscellaneous Medication (Phenylephrine Hcl In 0.9% Nacl 1 Mg/10 Ml Syringe) Confirm Administered Dose 1 mg .ROUTE .STK-MED ONE Stop: 02/06/21 07:07 Miscellaneous Medication (Phenylephrine Hcl In 0.9% Nacl 1 Mg/10 Ml Syringe) Confirm Administered Dose 1 mg .ROUTE .STK-MED ONE Stop: 02/06/21 08:17 Miscellaneous Medication (Phenylephrine Hcl In 0.9% Nacl 1 Mg/10 Ml Syringe) Confirm Administered Dose 1 mg .ROUTE .STK-MED ONE Stop: 02/06/21 08:31 Miscellaneous Medication (Phenylephrine Hcl In 0.9% Nacl 1 Mg/10 Ml Syringe) Confirm Administered Dose 1 mg .ROUTE .STK-MED ONE Stop: 02/06/21 08:37 Misoprostol (Misoprostol 200 Mcg Tab) 1,000 mcg RECTAL ONETIME PRN PRN Reason: excessive bleeding Morphine Sulfate (Morphine Pf 10 Mg/10 Ml Sdv) Confirm Administered Dose 10 mg .ROUTE .STK-MED ONE Stop: 02/06/21 07:07 Morphine Sulfate (Morphine 2 Mg/Ml Syringe) 2 mg IVPUSH Q10M PRN PRN Reason: Pain (severe 7-10) Nalbuphine HCl (Nalbuphine 10 Mg/1 Ml Vial) 5 mg IVPUSH Q30M PRN PRN Reason: Itching Last Admin: 02/06/21 10:09 Dose: 5 mg Documented by: Naloxone HCl (Naloxone 0.4 Mg/Ml Sdv) 0.1 mg IVPUSH ASDIRECTED PRN PRN Reason: Respiratory Depression Octyl Cyanoacrylate (Octyl 2-Cyanoacrylate 1 Tube) Confirm Administered Dose 1 applic .ROUTE .[facility]-MED ONE Stop: 02/06/21 07:37 Last Admin: 02/06/21 14:48 Dose: Not Given Documented by: Ondansetron HCl (Ondansetron 4 Mg/2 Ml Sdv) 4 mg IVPUSH Q4H PRN PRN Reason: Nausea/Vomiting Last Admin: 02/06/21 12:52 Dose: 4 mg Documented by: Ondansetron HCl (Ondansetron 4 Mg/2 Ml Sdv) Confirm Administered Dose 4 mg .ROUTE .[employer]MED ONE Stop: 02/06/21 07:07 Ondansetron HCl (Ondansetron 4 Mg/2 Ml Sdv) Confirm Administered Dose 4 mg .ROUTE .[facility]-MED ONE Stop: 02/06/21 07:07 Ondansetron HCl (Ondansetron 4 Mg/2 Ml Sdv) 4 mg IVPUSH Q6H PRN PRN Reason: Nausea Ondansetron HCl (Ondansetron 4 Mg/2 Ml Sdv) 4 mg IVPUSH ONETIME PRN PRN Reason: Nausea/Vomiting Ondansetron HCl (Ondansetron 4 Mg/2 Ml Sdv) 4 mg IVPUSH Q4H PRN PRN Reason: Nausea/Vomiting Oxycodone/Acetaminophen (Acetaminophen/Oxycodone 325-5 Mg Tab) 2 tab PO Q6H PRN PRN Reason: Pain (moderate 4-6) Last Admin: 02/07/21 14:54 Dose: 2 tab Documented by: Oxycodone/Acetaminophen (Acetaminophen/Oxycodone 325-5 Mg Tab) 1 tab PO Q4H PRN PRN Reason: Pain (severe 7-10) Oxycodone/Acetaminophen (Acetaminophen/Oxycodone 325-5 Mg Tab) 2 tab PO Q4H PRN PRN Reason: Pain (severe 7-10) Oxytocin (Oxytocin 10 Units/1 Ml Sdv) Confirm Administered Dose 10 unit .ROUTE .[facility]-MED ONE Stop: 02/06/21 07:07 Oxytocin (Oxytocin 10 Units/1 Ml Sdv) Confirm Administered Dose 10 unit .ROUTE .[facility]-MED ONE Stop: 02/06/21 07:07 Oxytocin (Oxytocin 10 Units/1 Ml Sdv) Confirm Administered Dose 10 unit .ROUTE .STK-MED ONE Stop: 02/06/21 07:07 Oxytocin (Oxytocin 10 Units/1 Ml Sdv) 10 unit IM ASDIRECTED PRN PRN Reason: Excessive Vaginal Bleeding Ropivacaine (Ropivacaine 0.5% 5 Mg/Ml 30 Ml Sdv) Confirm Administered Dose 30 ml .ROUTE .STK-MED ONE Stop: 02/06/21 07:09 Ropivacaine (Ropivacaine 0.5% 5 Mg/Ml 30 Ml Sdv) Confirm Administered Dose 30 ml .ROUTE .STK-MED ONE Stop: 02/06/21 07:09 Sodium Chloride (Sodium Chloride 0.9% 10 Ml Syringe) 10 ml FLUSH ASDIRECTED PRN PRN Reason: Keep Vein Open Sodium Chloride (Sodium Chloride 0.9% 2.5 Ml Syringe) 2.5 ml FLUSH ASDIRECTED PRN PRN Reason: Keep Vein Open Sodium Chloride (Sodium Chloride 0.9% 20 Ml Sdv) 10 ml IV ASDIRECTED PRN PRN Reason: IV Use - Exam General: Reports: Alert, Oriented Lungs: Reports: Normal Respiratory Effort Cardiovascular: Reports: Regular Rate GI/Abdominal Exam: Soft, Non-Tender Back Exam: Reports: Normal Inspection Extremities: Normal Inspection Psy/Mental Status: Reports: Alert, Normal Affect, Normal Mood
== END 2021-02-07 18:47 | disposition home or self-care (01) | DRG 788 ==
LOC: MW.OB 05:08
PROVIDERS: ADMIT Obstetrics & Gynecology; ATTEND Obstetrics & Gynecology
PROC: 10D00Z1 Extraction of Products of Conception, Low, Open Approach (ICD-10-PCS; principal; 2021-02-06)
DX: O34.211 Maternal care for low transverse scar from previous cesarean delivery (principal); Z37.0 Single live birth; O99.214 Obesity complicating childbirth; Z3A.39 39 weeks gestation of pregnancy; Z87.891 Personal history of nicotine dependence
CPT/HCPCS: 36415; 51702; 59025; 80053; 85014; 85018; 85025; 85027; 85384; 85610; 86592; 86850; 86900; 86901; 86920; 86921; 86922; A9270-GY; J0690; J1790; J1885; J2270; J2300; J2370; J2405; J2590; J2795; J3010; J7120

== ENCOUNTER 2021-07-21 21:31 | Emergency (ER) | payer MEDICAID ==
[2021-07-21] MEDS ORDERED: Sodium Chloride 0.9% 1,000 ML IV ONE (22:10)
[2021-07-21] MEDS ORDERED: Sodium Chloride 0.9% 10 ML Syringe FLUSH PRN (22:10)
[2021-07-21] MEDS ORDERED: Sodium Chloride 0.9% 2.5 ML Syringe FLUSH PRN (22:10)
[2021-07-21 22:28] LABS: BLOOD UREA NITROGEN,BUN 10 mg/dL (7.0-18.0); CARBON DIOXIDE,CO2 23.2 mmol/L (21.0-32.0); CHLORIDE,CL 108 mmol/L (98-107); GLUCOSE RANDOM 67 mg/dL (74-106); POTASSIUM,K 3.9 mmol/L (3.5-5.1); SODIUM,NA 142 mmol/L (136-145)
[2021-07-21 22:30] LABS: LIPASE 1584 U/L (73-393)
[2021-07-21] MEDS ORDERED: Iopamidol 755 MG/ML 500 ML Multipack Bottle IVPUSH STA (23:44)
[2021-07-22] MEDS ORDERED: Ketorolac 30 MG/ML SDV IVPUSH ONE (00:41)
[2021-07-22 01:25] LABS: BLOOD UREA NITROGEN,BUN 10 mg/dL (7.0-18.0); CARBON DIOXIDE,CO2 24.5 mmol/L (21.0-32.0); CHLORIDE,CL 108 mmol/L (98-107); GLUCOSE RANDOM 97 mg/dL (74-106); LIPASE 1079 U/L (73-393); SODIUM,NA 142 mmol/L (136-145)
== END 2021-07-22 01:51 | disposition home or self-care (01) ==
LOC: MW.ED 21:31
DX: K85.10 Biliary acute pancreatitis without necrosis or infection (principal); R79.89 Other specified abnormal findings of blood chemistry; R74.8 Abnormal levels of other serum enzymes; E66.9 Obesity, unspecified; Z68.34 Body mass index [BMI] 34.0-34.9, adult
CPT/HCPCS: 36415; 71045; 74177; 76705; 80053; 81003; 81025; 83690; 84484; 85025; 93005; 96374; 99285; J1885; J3490; J7030; Q9967; 93010

== ENCOUNTER 2021-08-01 15:42 | Emergency (ER) | payer MEDICAID ==
[2021-08-01] MEDS ORDERED: HYDROmorphone 1 MG/ML Syringe IVPUSH ONE (16:00)
[2021-08-01] MEDS ORDERED: Ondansetron 4 MG/2 ML SDV IVPUSH ONE (16:00)
[2021-08-01] MEDS ORDERED: Sodium Chloride 0.9% 1,000 ML IV ONE (16:00)
[2021-08-01] MEDS ORDERED: Ketorolac 30 MG/ML SDV IVPUSH ONE (16:48)
[2021-08-01 16:50] LABS: BLOOD UREA NITROGEN,BUN 7 mg/dL (7.0-18.0); CARBON DIOXIDE,CO2 22.3 mmol/L (21.0-32.0); CHLORIDE,CL 105 mmol/L (98-107); GLUCOSE RANDOM 92 mg/dL (74-106); LIPASE 230 U/L (73-393); POTASSIUM,K 3.3 mmol/L (3.5-5.1); SODIUM,NA 140 mmol/L (136-145)
[2021-08-01 16:51] LABS: ESTIMATED GFR > 60.0 ml/min
[2021-08-01] MEDS ORDERED: Iopamidol 755 MG/ML 500 ML Multipack Bottle IVPUSH ONE (17:04)
== END 2021-08-01 19:24 | disposition home or self-care (01) ==
LOC: MW.ED 15:42
DX: K80.20 Calculus of gallbladder without cholecystitis without obstruction (principal); E66.9 Obesity, unspecified; Z68.34 Body mass index [BMI] 34.0-34.9, adult; Z79.899 Other long term (current) drug therapy; Z90.49 Acquired absence of other specified parts of digestive tract; Z20.822 Contact with and (suspected) exposure to COVID-19
CPT/HCPCS: 36415; 74177; 76705; 80053; 83690; 84703; 85025; 87635; 96361; 96374; 96375; 99284; J1170; J2405; J7030; Q9967; U0002

== ENCOUNTER 2021-08-29 19:13 | Emergency (ER) | payer MEDICAID ==
[2021-08-29] MEDS ORDERED: HYDROmorphone 1 MG/ML Syringe IVPUSH ONE (19:39)
[2021-08-29] MEDS ORDERED: Sodium Chloride 0.9% 2.5 ML Syringe FLUSH PRN (19:39)
[2021-08-29] MEDS ORDERED: Sodium Chloride 0.9% 10 ML Syringe FLUSH PRN (19:39)
[2021-08-29] MEDS ORDERED: Ondansetron 4 MG/2 ML SDV IVPUSH ONE (19:39)
[2021-08-29] MEDS ORDERED: Sodium Chloride 0.9% 1,000 ML IV ONE (19:39)
[2021-08-29 20:33] LABS: CARBON DIOXIDE,CO2 21.7 mmol/L (21.0-32.0); POTASSIUM,K 3.9 mmol/L (3.5-5.1)
== END 2021-08-29 21:17 | disposition home or self-care (01) ==
LOC: MW.ED 19:13
DX: R10.11 Right upper quadrant pain (principal); E66.9 Obesity, unspecified; Z68.34 Body mass index [BMI] 34.0-34.9, adult
CPT/HCPCS: 36415; 80053; 83690; 83735; 85025; 96374; 96375; 99284; J1170; J2405; J3490; J7030

== ENCOUNTER 2021-08-31 12:16 | Emergency (ER) | payer MEDICAID | END 2021-08-31 14:47 | disposition left against medical advice (07) | LOC: MW.ED 12:16 | DX: Z53.21 Procedure and treatment not carried out due to patient leaving prior to being seen by health care provider (principal) ==

== ENCOUNTER 2021-09-01 22:14 | Emergency (ER) | payer MEDICAID ==
[2021-09-01] MEDS ORDERED: Sodium Chloride 0.9% 10 ML Syringe FLUSH PRN (23:26)
[2021-09-01] MEDS ORDERED: Ketorolac 30 MG/ML SDV IVPUSH ONE (23:26)
[2021-09-01] MEDS ORDERED: Sodium Chloride 0.9% 2.5 ML Syringe FLUSH PRN (23:26)
[2021-09-01] MEDS ORDERED: Morphine 4 MG/ML VIAL IVPUSH ONE (23:36)
[2021-09-01] MEDS ORDERED: Ondansetron 4 MG/2 ML SDV IVPUSH ONE (23:36)
[2021-09-02 01:04] LABS: CARBON DIOXIDE,CO2 23.6 mmol/L (21.0-32.0); POTASSIUM,K 3.6 mmol/L (3.5-5.1)
[2021-09-02] MEDS ORDERED: Sodium Chloride 0.9% 1,000 ML IV ONE (01:51)
[2021-09-02] MEDS ORDERED: Piperacillin/Tazobactam 4.5 GM in Sodium Chloride 0.9% 100 ML IV ONE (03:51)
[2021-09-02] MEDS ORDERED: Morphine 4 MG/ML VIAL IVPUSH ONE (04:42)
== END 2021-09-02 05:07 | disposition left against medical advice (07) ==
LOC: MW.ED 22:14
DX: K85.10 Biliary acute pancreatitis without necrosis or infection (principal); K80.50 Calculus of bile duct without cholangitis or cholecystitis without obstruction; Z20.822 Contact with and (suspected) exposure to COVID-19; E66.9 Obesity, unspecified; Z68.36 Body mass index [BMI] 36.0-36.9, adult
CPT/HCPCS: 36415; 76705; 80053; 81025; 83690; 85025; 87635; 93005; 96361; 96365; 96375; 99284; J2270; J2405; J2543; J3490; J7030; 93010; U0002

== ENCOUNTER 2021-09-02 05:28 | Emergency (ER) | payer MEDICAID ==
[2021-09-02] MEDS ORDERED: Sodium Chloride 0.9% 1,000 ML IV ONE (05:55)
[2021-09-02] MEDS ORDERED: Morphine 4 MG/ML VIAL IVPUSH ONE (06:04)
== END 2021-09-02 07:08 ==
LOC: MW.ED 05:28
DX: K80.50 Calculus of bile duct without cholangitis or cholecystitis without obstruction (principal)
CPT/HCPCS: 96374; 99285; J2270; J7030

== ENCOUNTER 2023-05-01 07:20 | Day surgery (SDC) | payer MEDICAID ==
[2023-05-01] MEDS: Sodium Chloride 0.9% 10 ML Syringe FLUSH PRN (07:36)
[2023-05-01] MEDS: Sodium Chloride 0.9% 500 ML IV SCH (07:36)
[2023-05-01] MEDS: Sodium Chloride 0.9% 2.5 ML Syringe FLUSH PRN (07:36)
[2023-05-01 07:56] LABS: BASOPHILS ABSOLUTE AUTO 0.02 K/uL (0.00-0.20); BASOPHILS PERCENT AUTO 0.4 % (0.0-1.0); EOSINOPHILS ABSOLUTE AUTO 0.05 K/uL (0.00-0.45); HEMATOCRIT 34.6 % (37.0-47.0); HEMOGLOBIN 11.9 g/dL (12.0-16.0); IMMATURE GRAN ABSOLUTE AUTO 0.02 K/uL (0.00-0.05); IMMATURE GRAN PERCENT AUTO 0.4 % (0.0-0.4); LYMPHOCYTES PERCENT AUTO 30.4 % (24.0-44.0); MEAN CORPUSCULAR HEMOGLOBIN 30.9 pg (28.0-32.0); MEAN CORPUSCULAR HGB CONC 34.4 g/dL (32.0-36.0); MEAN CORPUSCULAR VOLUME 89.9 fL (83.0-99.0); MEAN PLATELET VOLUME 10.2 fL (9.4-12.3); MONOCYTES ABSOLUTE AUTO 0.28 K/uL (0.00-0.80); MONOCYTES PERCENT AUTO 5.7 % (0.0-8.0); NEUTROPHILS ABSOLUTE AUTO 3.07 K/uL (1.80-7.70); NEUTROPHILS PERCENT AUTO 62.1 % (41.0-71.0); PLATELET COUNT,PLT 201 K/uL (150-400); RED BLOOD CELL COUNT 3.85 M/uL (4.10-5.30); WHITE BLOOD CELL COUNT,WBC 4.94 K/uL (3.9-11.3)
[2023-05-01 08:29] LABS: A/G RATIO 1.2 (0.9-1.6); ALBUMIN 3.6 g/dL (3.4-5.0); BILIRUBIN TOTAL 0.4 mg/dL (0.2-1.0); CALCIUM 8.2 mg/dL (8.5-10.1); CARBON DIOXIDE,CO2 21.7 mmol/L (21.0-32.0); CREATININE 0.9 mg/dL (0.6-1.0); EST CRCL DRUG DOSING (CG) 87.27 mL/min; PROTEIN TOTAL,TP 6.7 g/dL (6.4-8.2)
[2023-05-01] MEDS: ceFAZolin 1 GM in Sodium Chloride 0.9% 50 ML IV ONE (08:40)
[2023-05-01] MEDS ORDERED: propofoL 50 ML ONE ×4 (09:05→11:10)
[2023-05-01] MEDS ORDERED: fentaNYL 100 MCG/2 ML SDV ONE (09:05)
[2023-05-01] MEDS ORDERED: dexmedeTOMIDine HCl 200 MCG/2 ML SDV ONE (09:05)
[2023-05-01] MEDS ORDERED: Water For Injection, Sterile 20 ML ONE (09:05)
[2023-05-01] MEDS ORDERED: Propofol 200 MG/20 ML SDV ONE (09:11)
[2023-05-01 10:04] LABS: AMPHETAMINES SCREEN, URINE NEGATIVE (CUTOFF=500); BARBITURATE SCREEN,URINE NEGATIVE (CUTOFF=200); BENZODIAZEPINES SCREEN,URINE NEGATIVE (CUTOFF=150); BUPRENORPHINE SCREEN,URINE NEGATIVE (CUTOFF=10); METHADONE SCREEN, URINE NEGATIVE (CUTOFF=200); METHAMPHETAMINES SCREEN, URINE NEGATIVE (CUTOFF=500); OXYCODONE SCREEN,URINE NEGATIVE (CUT0FF=100); PCP SCREEN,URINE NEGATIVE (CUTOFF=25); THC SCREEN,URINE 20 NG/ML PRESUMPTIVE POSITIVE (CUTOFF=50)
[2023-05-01] MEDS ORDERED: Magnesium Sulfate (4.06 MEQ/ML) 5 GM/10 ML SDV ONE (10:04)
[2023-05-01] MEDS ORDERED: Phenylephrine HCl 0.5 MG/5 ML AMP ONE ×2 (10:10→10:37)
[2023-05-01] MEDS ORDERED: fentaNYL 250 MCG/5 ML SDV ONE (10:29)
[2023-05-01] MEDS ORDERED: ePHEDrine 50 MG/ML SDV ONE (10:38)
[2023-05-01] MEDS ORDERED: Dexamethasone 4 MG/ML 5 ML MDV ONE (10:39)
[2023-05-01] MEDS ORDERED: Ondansetron 4 MG/2 ML SDV ONE (10:39)
[2023-05-01] MEDS ORDERED: Piperacillin/Tazobactam 3.375 GM in Sodium Chloride 0.9% 100 ML IV ONE (10:43)
[2023-05-01] MEDS ORDERED: HYDROmorphone 2 MG/ML Syringe ONE (11:14)
[2023-05-01] MEDS ORDERED: Ketorolac 30 MG/ML SDV ONE (11:29)
== END 2023-05-01 15:18 | disposition home or self-care (01) ==
LOC: MW.ED 07:20 → MW.SDS 10:57 → MW.MS 12:55 → MW.SDS 15:18
PROVIDERS: ATTEND Orthopaedic Surgery
DX: S91.311A Laceration without foreign body, right foot, initial encounter (principal); F17.210 Nicotine dependence, cigarettes, uncomplicated; X58.XXXA Exposure to other specified factors, initial encounter
CPT/HCPCS: 28200; 28238; 28755; 36415; 71045; 73620; 80053; 80305; 80307; 83690; 84703; 85025; 86850; 86900; 86901; 93005; 96365; 99285; J0131; J0690; J1100; J1170; J1885; J2371; J2405; J2543; J2704; J3010; J3475; J3490; J7040; 01470; 93010